=== PATIENT | male | born 1935 | race Caucasian/White ===

== ENCOUNTER 2017-07-29 14:09 | Inpatient (IN) | payer OTHER, MEDICARE ==
[~2017-07-29] VITALS: Ht 177.8 cm; Wt 62.8 kg
--- NOTE | 2017-07-29 14:38 | ED DYSPNEA/ASTHMA COMPLAINT ---
History of Present Illness General Chief Complaint: Dyspnea (COPD, CHF, Other) Stated Complaint: SENT BY URGENT CARE FOR ?COPD EXACERBATION Source: patient Exam Limitations: no limitations Vital Signs & Intake/Output Vital Signs & Intake/Output Vital Signs Date Time Temp Pulse Resp B/P B/P Pulse O2 O2 Flow FiO2 Mean Ox Delivery Rate 07/30 1649 63 110/60 07/30 1543 19.0 63 20 110/60 98 Room Air 07/30 1118 95 Room Air 07/30 1110 Room Air 07/30 0908 76 111/55 07/30 0800 98.4 76 18 124/70 96 Room Air 07/30 0800 96 Room Air 07/30 0400 92 Room Air 07/30 0213 93 Room Air 07/30 0115 97.8 81 18 110/60 93 Room Air 07/30 0051 88 18 123/70 94 Room Air 07/29 2340 98.9 76 20 119/61 94 Room Air 07/29 2226 98.5 88 18 114/59 93 Room Air 07/29 2121 98.6 93 20 129/59 94 Room Air ED Intake and Output 07/30 0000 07/29 1200 Intake Total 0 Output Total 300 Balance -300 Intake, Oral 0 Output, Urine 300 Patient 175 lb Weight Allergies Coded Allergies: crab (DIARRHEA 07/29/17) Triage Note: 81 YEAR OLD MALE TO TRIAGE WITH COMPLAINTS OF INCREASED SOB AND NON PRODUCTIVE LOOSE COUGH FOR ABOUT 1 WEEK. PT HAS COPD AND O2 SAT 96 % AT TRIAGE. AFEBRILE Triage Nurses Notes Reviewed? yes Onset: Gradual Duration: week(s): (1) Timing: recent history Severity: moderate Activities at Onset: none Prior Episodes/Possible Cause: occasional episodes HPI: Patient is an 81-year-old male with history of hypertension, hyperlipidemia and COPD presenting to the emergency department with family Lozoya complaining of increasing shortness of breath, nonproductive cough that been going on for the past one week. Patient reports that he was seen and evaluated at an urgent care facility about one week ago and was put on antibiotics and prednisone. Symptoms still not improving one week later. Shortness of breath is worse with exertion. Denies any chest pain or palpitations. Denies abdominal pain. Patient also reports that he tripped on the floor at home today fell backward and hit his head. Denies loss of consciousness. No headaches. Denies visual changes. He was able to get up with the assistance of another person. Patient denying any neck pain. Denies back pain. Patient reports his main complaint is shortness of breath COPD. He has been using inhalers at home without relief. Reports he is coughing so much that is keeping him up at night. (Obdulia HOOVER,Jyoti) Reconcile Medications Albuterol Sulfate (Ventolin Hfa) 90 MCG HFA.AER.AD 2 PUF INH Q4H PRN WHEEZE/ SOB (Reported) Aspirin (Ecotrin*) 81 MG TABLET.DR 1 TAB PO DAILY HEART/BLOOD (Reported) Atorvastatin Calcium 40 MG TABLET 1 TAB PO DAILY CHOLESTEROL (Reported) Benzonatate (Tessalon Perle) 100 MG CAPSULE 1 CAP PO TID PRN COUGH (Reported) Citalopram Hydrobromide (Citalopram HBr) 40 MG TABLET 1 TAB PO DAILY MENTAL HEALTH (Reported) Cyanocobalamin (Vitamin B-12) 1,000 MCG TABLET 1 TAB PO DAILY SUPPLEMENT ( Reported) Cyanocobalamin (Vitamin B-12) (Vitamin B-12) 100 MCG TABLET 1 TAB PO DAILY SUPPLEMENT (Reported) Diltiazem HCl (Cardizem Cd) 240 MG CAP.ER.24H 1 CAP PO DAILY HEART/BP ( Reported) Finasteride 5 MG TABLET 1 TAB PO DAILY PROSTATE (Reported) Hydrochlorothiazide 25 MG TABLET 1 TAB PO DAILY DIURETIC (Reported) Ipratropium Willard (Atrovent Hfa) 17 MCG/ACTUATION HFA.AER.AD 2 PUFF INH BID COPD (Reported) Lisinopril 20 MG TABLET 1 TAB PO DAILY BP (Reported) Metoprolol Tartrate 25 MG TABLET 75 MG PO BID HEART/BP (Reported) Mometasone/Formoterol (Dulera 200 Mcg/5 Mcg Inhaler) 200 MCG-5 MCG/ACTUATION HFA.AER.AD 2 PUF INH BID COPD (Reported) Prednisone 10 MG TABLET STEROID TAPER (Reported) Tamsulosin HCl 0.4 MG CAP.ER.24H 1 CAP PO DAILY (Reported) Tiotropium Willard (Spiriva) (Unknown Strength) CAP.W.DEV (Unknown Dose) INH DAILY COPD (Reported) Trazodone HCl 50 MG TABLET 1 TAB PO AD MENTAL HEALTH/SLEEP (Reported) Vit C/E/Zn/Coppr/Lutein/Zeaxan (Preservision Areds 2 Softgel) 250-200-40 CAPSULE 1 SGL PO BID SUPPLEMENT (Reported) (Hollie BIRD,Dillan Lozano) Past History Travel History Traveled to [place] past 21 day No Medical History Any Pertinent Medical History? 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 No (Jyoti Watson) Review of Systems Review of Systems Constitutional: Reports: malaise. Comments Review of systems: See HPI, All other systems negative. Constitutional, no chills fever or weight loss HEENT: No visual changes no sore throat Cardiovascular: No chest pain ,palpitation , orthopnea or ankle swelling Skin, no jaundice no rashes Respiratory: No sputum or hemoptysis GI: No nausea no vomiting : No dysuria No hematuria Muscle skeletal: no back pain, no neck pain, Neurologic: No numbness no confusion no headaches Psych: No stress anxiety or depression,. Heme/endocrine: No bruising no bleeding no polyuria or polydipsia Immunology: No splenectomy or history of AIDS (Jyoti Watson) Physical Exam Physical Exam General Appearance: well developed/nourished, alert, awake, comfortable, mild distress (respiratory distress) Respiratory: respiratory distress (MILD) Comments: Well-developed well-nourished person in no acute distress HEENT:extraocular motion intact, no nystagmus. Pupils equally round and reactive to light and accommodation. Nose is atraumatic. No septal hematoma. No pain to palpation over the nasal bridge. Small abrasion noted to the right of the nasal bridge. External auditory canal and Tympanic membranes clear. Pharynx normal. No swelling or edema. No hemotympanum. Small hematoma on the posterior aspect of the scalp, centrally located approximately 2 cm in size, no active bleeding. Neck: Supple, no lymphadenopathy, normal range of motion without pain or tenderness, no C-spine tenderness. Back: Nontender, FULL range of motion. Cardiovascular: Regular rate and rhythms no murmurs rubs or gallops, normal JVP Respiratory: Chest nontender. No respiratory distress.breath sounds DIMINISHED to auscultation bilaterally Abdomen: Soft, nontender nondistended, no appreciable organomegaly. Normal bowel sounds. No ascites Extremity: 2+ pitting edema in the lower extremities bilaterally, no calf tenderness to palpation, normal and equal pulses. Neuro: Alert oriented x3, motor sensory normal, cranial nerves II through XII grossly intact. Cerebellar testing is unremarkable. Patellar reflexes are 1+ bilaterally. Skin: Superficial linear laceration approximately 2 cm in size noted on the superior aspect of the nasal bridge on the right side. 2 Centimeter laceration noted on the central aspect the posterior scalp, subcutaneous, no active bleeding. Psych: Mood and affect is normal, memory and judgment is normal. Core Measures ACS in differential dx? No CVA/TIA Diagnosis No Sepsis Present: No Sepsis Focused Exam Completed? No (Obdulia HOOVER,Jyoti) Progress Differential Diagnosis: asthma, bronchitis, costochondritis, CHF, COPD, pericarditis, pneumonia, INTRACRANIAL HEMORRHAGE, MINOR HEAD INJURY, MEDICATION REACTION Plan of Care: Orders Procedure Date/time Status PRE-ALBUMIN 07/31 06 Active CBC WITHOUT DIFFERENTIAL 07/31 06 Active BASIC ELECTROLYTES PLUS BUN&CR 07/31 06 Active CULTURE,URINE 07/30 1451 Active Wound Care/Dressing 07/30 1425 Active Transfer Disposition 07/30 1425 Active RT: Evaluation 07/30 1110 Active Wound Care/Dressing 07/30 156 Complete Weight 07/30 0157 Active VTE Mechanical Prophylaxis 07/30 156 Active Vital Signs 07/30 156 Active Turn and Reposition 07/30 156 Active Drains/Tubes 07/30 156 Active Teach/Educate 07/30 156 Active Skin Integrity Protocol 07/30 156 Active Skin/Pressure Ulcer Assess (Sk 07/30 015 Active Precautions 07/30 156 Active Pain Treatment and Response 07/30 156 Active Nutritional Intake, Monitor 07/30 156 Active Isolation 07/30 156 Active CIWA 07/30 156 Active Patient Care Conference 07/30 156 Active Activity/Ambulation 07/30 156 Active VRE ACTIVE SURVIELLANCE 07/30 0149 Active ACTIVE SURVEILLANCE NARES 07/30 148 Active THERAPIST ORDERS 07/30 UNK Complete PT Evaluate & Treat 07/30 UNK Active Therapeutic Activities 07/30 UNK Complete PT EVAL LOW COMPLEX 20 MIN 07/30 UNK Complete Gait Training 07/30 UNK Complete Transfer patient to 07/30 UNK Active Lab Add-on Test 07/30 UNK Active PHARMACY COMMUNICATION FORM 07/30 UNK Active MISSING MEDICATION FORM 07/30 UNK Active URINE OSMOLALITY 07/29 1999 Complete URINE LYTES, SPOT 07/29 1999 Complete Herson Coma Scale 07/29 191 Active Current Medications Sig/[place] Start time Last Medication Dose Stop Time Status Admin Prednisone 10 MG DAILY 08/02 1000 AC 08/02 1001 Prednisone 20 MG DAILY 08/01 1000 AC Prednisone 30 MG DAILY 07/31 1000 AC 07/31 1001 Trazodone HCl 50 MG AT BEDTIME PRN 07/30 2200 AC (Desyrel) Atorvastatin Calcium 40 MG 17007/30 1700 AC 07/30 (Lipitor) 1649 Citalopram 40 MG 17007/30 1700 AC 07/30 Hydrobromide 1649 (Celexa) Finasteride 5 MG 17007/30 1700 AC 07/30 (Proscar) 1648 Tamsulosin HCl 0.4 MG 17007/30 1700 AC 07/30 (Flomax) 1649 Albuterol Sulfate 3 ML Q4P PRN 07/30 1130 AC (Proventil) Cyanocobalamin 1,000 MCG DAILY 07/30 1000 AC 07/30 (Vitamin B12) 0908 Diltiazem HCl 240 MG DAILY 07/30 1000 AC 07/30 (Cardizem CD) 0907 Hydrochlorothiazide 25 MG DAILY 07/30 1000 AC 07/30 (Hydrodiuril) 0907 Lisinopril 20 MG DAILY 07/30 1000 AC 07/30 (Prinivil) 0908 Budesonide/ 2 PUF BID 07/29 2200 AC 07/30 Formoterol Fumarate 0909 (Symbicort) Metoprolol Tartrate 75 MG BID 07/29 2200 AC 07/30 (Lopressor) 0908 Tiotropium Willard 1 PUF DAILY 07/29 1910 AC 07/30 (Spiriva) 0908 Acetaminophen 650 MG Q6P PRN 07/29 1900 AC (Tylenol) Acetaminophen 1,000 MG Q6P PRN 07/29 1900 AC (Ofirmev) Azithromycin 250 MG DAILY 07/29 1900 AC 07/30 (Zithromax) 08/03 1001 0907 Guaifenesin 10 ML Q6P PRN 07/29 1900 AC (Robitussin) Laboratory Tests 07/30/17 0445: Anion Gap 10, Estimated GFR > 60, Glucose 129 H, Calcium 8.4, Phosphorus 3.6, Magnesium 1.7, Total Bilirubin 0.7, AST 23, ALT 32, Albumin 2.8 L, CBC w Diff NO MAN DIFF REQ, RBC 4.20 L, MCV 91.7, MCH 30.3, RDW 14.4, MPV 7.3 L, Gran % 92.5 H, Lymphocytes % 5.7 L, Monocytes % 1.7, Eosinophils % 0, Basophils % 0.1 , Absolute Granulocytes 13.0 H, Absolute Lymphocytes 0.8 L, Absolute Monocytes 0.2, Absolute Eosinophils 0, Absolute Basophils 0, PUBS MCHC 33.0 07/29/171999: Urine Color YEL, Urine Clarity CLDY H, Urine pH 6.0, Ur Specific [place] 1.025, Urine Protein 30 H, Urine Ketones NEG, Urine Nitrite POS H, Urine Bilirubin NEG, Urine Urobilinogen 0.2, Ur Leukocyte Esterase LARGE H, Ur Microscopic SEDIMENT EXAMINED, Urine RBC >75 H, Urine WBC > 75 H, Ur Epithelial Cells RARE , Urine Hemoglobin LARGE H, Urine Glucose NEG 07/29/171999: Urine Osmolality 476, Ur Random Creatinine 65.9, Ur Random Sodium 77, Ur Random Potassium 44.2, Fraction Sodium Excret 0.8 Microbiology 07/30 1451 URINE ROUT: Urine Culture - COLB 07/30 0200 UPPER RESP: Surveillance Culture - RECD 07/30 199 GI: Surveillance Culture - RECD 07/29 1999 URINE ROUT: Urine Culture - COMP 07/29 1913 NASOPHARYN: Influenza Virus A & B Rapid Smear - COMP With Dr. BHAKTA, covering neurosurgeon, recommended we admit patient to medicine to the ICU for serial neuro checks, repeat CAT scan. Patient also admitted for COPD exacerbation. Family informed of all labs and imaging results. Patient resting comfortably. Diagnostic Imaging: Viewed by Me: Radiology Read, CT Scan. Discussed w/RAD: Radiology Read, CT Scan. Radiology Impression: PATIENT: AGNIESZKA FERRARO PRESENT AGE: 81 PATIENT ACCOUNT NO: [id number] : 33 LOCATION: [facility] ORDERING PHYSICIAN: Jyoti HOOVER SERVICE DATE: 07/29/178140 EXAM TYPE: CAT - CT CERV SPINE WO IV CONTRAST; CT HEAD WO IV CONTRAST EXAMINATION: CT HEAD WITHOUT CONTRAST CT OF THE CERVICAL SPINE WITHOUT CONTRAST CLINICAL INFORMATION: Status post fall. COMPARISON: None. TECHNIQUE: Noncontrast CT scan of the head and cervical spine, using standard protocol. Multiplanar reconstructed images are obtained. Multiplanar reconstructed images are also obtained. FINDINGS: CT OF THE HEAD: Evaluation is limited especially the region of the skull base due to motion related artifacts. Repeat images were also obtained. Solitary 8 mm focal area of hyperdensity is noted at left frontal parafalcine region (see the sorto images) with Hounsfield value of 50. Differential includes tiny focal hemorrhage versus underlying pathology such as mineralized cavernous angioma. Further differentiation cannot be made based on this imaging appearance alone. Follow-up repeat noncontrast CT scan in 6 hours or a follow-up MRI or clinical management as appropriate is recommended. The remainder of the brain parenchyma shows age-appropriate mild diffuse cortical atrophy and mild chronic microvascular deep white matter ischemic changes. There is no extra-axial fluid collection identified. Small air-fluid level is noted within the right anterior inferior part of the sphenoid sinus and also within the left maxillary sinus, may represent intrasinus hemorrhage or acute sinusitis. Both orbital globes, extraocular muscles, optic nerves appear bilaterally symmetric and are unremarkable. 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 Moderate to severe degenerative spondylosis related changes are noted at C4-C5, to a lesser extent C3-C4, C5-C6 and C6-C7. Significant facet joint arthritic changes are also noted bilaterally. The posterior appendages are intact. Mild mid cervical dextroscoliosis is present. The prespinal soft tissues are unremarkable. Both lung apices are clear. IMPRESSION: 1. The CT of the head shows 8 mm hyperdensity within the left frontal parafalcine region with Hounsfield value of 50, may represent tiny focal area of hemorrhage versus underlying pathology such as mineralized cavernous angioma. Further differentiation cannot be made based on this imaging appearance alone. Follow-up repeat noncontrast CT scan in 6 hours or a follow-up MRI or clinical management as appropriate is recommended. 2. No CT evidence of any acute fracture no subluxation or dislocation or prespinal soft tissue hematoma present at the cervical spine. This critical result was discussed with SNEHA Quintero at 4:04 PM on 07/29/2017 and it was ascertained that the content and urgency of the report was understood at the time of direct communication. DICTATED BY: Kristin Harp MD DATE/TIME DICTATED:07/29/171525 ASSEMBLY RIVETER:DAMON DATE/TIME TRANSCRIBED:07/29/171525 CONFIDENTIAL, DO NOT COPY WITHOUT APPROPRIATE AUTHORIZATION. <Electronically signed in Other Vendor System> SIGNED BY: Kristin Harp MD 07/29/17 1610 CXR Impression: PATIENT: AGNIESZKA FERRARO PRESENT AGE: 81 PATIENT ACCOUNT NO: [id number] : 33 LOCATION: [facility] ORDERING PHYSICIAN: Israel Diaz DO SERVICE DATE: 07/29/17 EXAM TYPE: RAD - XRY-CHEST XRAY, TWO VIEWS EXAMINATION: XR CHEST CLINICAL INFORMATION: Nonproductive cough. COMPARISON: None TECHNIQUE: 2 views of the chest were obtained. FINDINGS: Both lungs are symmetrically hyperexpanded and are clear. The cardiomediastinal silhouette is remarkable for undulated descending thoracic aorta. There is no pleural effusion or pneumothorax present. The visualized upper abdomen is unremarkable. Multilevel degenerative spondylosis related changes are noted in the spine. IMPRESSION: Hyperinflated lung field, consistent with likely underlying COPD. No radiographic evidence of superimposed pneumonia. DICTATED BY : Kristin Harp MD DATE/TIME DICTATED:07/29/171458 ASSEMBLY RIVETER: DAMON DATE/TIME TRANSCRIBED:07/29/171458 CONFIDENTIAL, DO NOT COPY WITHOUT APPROPRIATE AUTHORIZATION. <Electronically signed in Other Vendor System> SIGNED BY: Kristin Harp MD 07/29/17 1557 Initial ED EKG: SINUS RHYTHM AT 96 BPM, LEFT ANTERIOR FASCICULAR BLOCK, BORDERLINE PROLONGED qt (Obdulia HOOVER,Jyoti) Departure Departure Time of Disposition: 1703 Disposition: STILL A PATIENT Condition: Stable Clinical Impression Primary Impression: Intracranial hemorrhage Secondary Impressions: COPD exacerbation, Laceration Referrals: Sami Pham MD Departure Forms: Customer Survey General Discharge Information Admission Note Spoke With: Raimundo Jamil MD Documentation of Exam: Documentation of any treatments & extenuating circumstances including Concerns Regarding Discharge (functional status, medication knowledge or non-compliance, living conditions, etc.) that warrant an admission rather than observation: Patient requiring intensive care unit admission for serial neuro checks, continuous monitoring, neurosurgery consultation, repeat imaging in 6 hours to ensure area is resolving. Serial breathing treatments to help COPD exacerbation. (Jyoti Watson) Admission Note Documentation of Exam: Documentation of any treatments & extenuating circumstances including Concerns Regarding Discharge (functional status, medication knowledge or non-compliance, living conditions, etc.) that warrant an admission rather than observation: PA/DIGITAL RESEARCH ANALYST Co-Sign Statement Statement: ED Attending supervision documentation- [X] I saw and evaluated the patient. I have also reviewed all the pertinent lab results and diagnostic results. I agree with the findings and the plan of care as documented in the PA's/DIGITAL RESEARCH ANALYST's documentation. [X] I have reviewed the ED Record and agree with the PA's/DIGITAL RESEARCH ANALYST's documentation. [] Additions or exceptions (if any) to the PAs/DIGITAL RESEARCH ANALYST's note and plan are summarized below: [Patient sent for walk in center for evaluation for COPD exacerbation. Patient was wheezing upon presentation however after nebulizers he is feeling much better. Patient did have a mechanical fall this morning and had a laceration to the back of his head. Patient denies loss of consciousness. Patient has no neurological findings. There is no headache. On the CAT scan there showing an 8 mm hyperdense lesion in his left frontal parafalcine area. This is discussed with no surgery and recommends admission to the ICU for serial neuro checks and repeat CAT scan in the morning. If his neurological status deteriorates he may require surgical or interventional radiology evaluation and treatment. Patient will also need respiratory treatments for his COPD.] (Hollie BIRD,Dillan Lozano) Procedures Laceration/Wound Repair Laceration/Wound Repair: Wound Location: head Wound's Depth, Shape: linear, subcutaneous Wound Length (cm): 2 Wound Explored: clean, irrigated extensively Irrigated w/ Saline (ccs): 100 Betadine Prep? Yes Suture Size/Type: mulugeta Number of Sutures: 2 Layer Closure? No Tetanus Status: up to date Progress: TOLERATD PROCEDURE WELL (Jyoti Watson) Critical Care Note Critical Care Note Critical Care Time: 30-74 min (Obdulia HOOVER,Jyoti)
[2017-07-29 14:43] LABS: ABSOLUTE BASOPHIL COUNT 0 /CUMM (0.0-0.2); ABSOLUTE EOSINOPHIL COUNT 0.1 /CUMM (0.0-0.7); ABSOLUTE GRANULOCYTE CT 18.6 /CUMM (1.4-6.5); BASOPHIL % 0 % (0.0-2.0); EOSINOPHIL % 0.4 % (0-5); GRANULOCYTE % 90.1 % (42.2-75.2); HEMATOCRIT 45.1 % (42-52); MEAN CORPUSCULAR HGB 30.3 PG (27.0-31.0); MEAN CORPUSCULAR HGB CONC 32.9 G/DL (33.0-37.0); MEAN PLATELET VOLUME 6.6 FL (7.4-10.4); PLATELET COUNT 423 /CUMM (130-400); RBC DISTRIBUTION WIDTH 14.5 % (11.5-14.5); WHITE BLOOD CELL COUNT 20.7 /CUMM (4.8-10.8)
[2017-07-29] MEDS ORDERED: ASPIRIN EC81 M1 PO (15:29)
[2017-07-29] MEDS ORDERED: FINASTERIDE5 M1 PO (15:30)
[2017-07-29] MEDS ORDERED: ATORVASTATIN CA40 M1 PO (15:30)
[2017-07-29] MEDS ORDERED: CITALOPRAM HBR40 MG PO (15:30)
[2017-07-29] MEDS ORDERED: VITAMIN B-121000 MC3 PO (15:30)
[2017-07-29] MEDS ORDERED: DULERA 200 MCG/13 GM INH (15:31)
[2017-07-29] MEDS ORDERED: HYDROCHLOROTHIA25 M1 PO (15:31)
[2017-07-29] MEDS ORDERED: TAMSULOSIN HCL0.4 M1 PO (15:31)
[2017-07-29] MEDS ORDERED: LISINOPRIL20 M1 PO (15:31)
[2017-07-29] MEDS ORDERED: CARDIZEM CD240 M1 PO (15:32)
[2017-07-29] MEDS ORDERED: ATROVENT HFA12.9 GM INH (15:33)
[2017-07-29] MEDS ORDERED: AMOX-CLAV 875-1 EACH PO (15:33)
[2017-07-29] MEDS ORDERED: PREDNISONE10 M2 PO (15:34)
[2017-07-29] MEDS ORDERED: VENTOLIN HFA18 GM INH (15:34)
[2017-07-29] MEDS ORDERED: METOPROLOL TART25 M1 PO (15:35)
[2017-07-29] MEDS ORDERED: PRESERVISION A1 EAC1 PO (15:38)
--- NOTE | 2017-07-29 15:57 | RADIOLOGY REPORT ---
EXAMINATION: XR CHEST CLINICAL INFORMATION: Nonproductive cough. COMPARISON: None TECHNIQUE: 2 views of the chest were obtained. FINDINGS: Both lungs are symmetrically hyperexpanded and are clear. The cardiomediastinal silhouette is remarkable for undulated descending thoracic aorta. There is no pleural effusion or pneumothorax present. The visualized upper abdomen is unremarkable. Multilevel degenerative spondylosis related changes are noted in the spine. IMPRESSION: Hyperinflated lung field, consistent with likely underlying COPD. No radiographic evidence of superimposed pneumonia.
--- NOTE | 2017-07-29 16:10 | CT SCAN REPORT ---
EXAMINATION: CT HEAD WITHOUT CONTRAST CT OF THE CERVICAL SPINE WITHOUT CONTRAST CLINICAL INFORMATION: Status post fall. COMPARISON: None. TECHNIQUE: Noncontrast CT scan of the head and cervical spine, using standard protocol. Multiplanar reconstructed images are obtained. Multiplanar reconstructed images are also obtained. FINDINGS: CT OF THE HEAD: Evaluation is limited especially the region of the skull base due to motion related artifacts. Repeat images were also obtained. Solitary 8 mm focal area of hyperdensity is noted at left frontal parafalcine region (see the sorto images) with Hounsfield value of 50. Differential includes tiny focal hemorrhage versus underlying pathology such as mineralized cavernous angioma. Further differentiation cannot be made based on this imaging appearance alone. Follow-up repeat noncontrast CT scan in 6 hours or a follow-up MRI or clinical management as appropriate is recommended. The remainder of the brain parenchyma shows age-appropriate mild diffuse cortical atrophy and mild chronic microvascular deep white matter ischemic changes. There is no extra-axial fluid collection identified. Small air-fluid level is noted within the right anterior inferior part of the sphenoid sinus and also within the left maxillary sinus, may represent intrasinus hemorrhage or acute sinusitis. Both orbital globes, extraocular muscles, optic nerves appear bilaterally symmetric and are unremarkable. 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 Moderate to severe degenerative spondylosis related changes are noted at C4-C5, to a lesser extent C3-C4, C5-C6 and C6-C7. Significant facet joint arthritic changes are also noted bilaterally. The posterior appendages are intact. Mild mid cervical dextroscoliosis is present. The prespinal soft tissues are unremarkable. Both lung apices are clear. IMPRESSION: 1. The CT of the head shows 8 mm hyperdensity within the left frontal parafalcine region with Hounsfield value of 50, may represent tiny focal area of hemorrhage versus underlying pathology such as mineralized cavernous angioma. Further differentiation cannot be made based on this imaging appearance alone. Follow-up repeat noncontrast CT scan in 6 hours or a follow-up MRI or clinical management as appropriate is recommended. 2. No CT evidence of any acute fracture no subluxation or dislocation or prespinal soft tissue hematoma present at the cervical spine. This critical result was discussed with SNEHA Quintero at 4:04 PM on 07/29/2017 and it was ascertained that the content and urgency of the report was understood at the time of direct communication.
[2017-07-29] MEDS ORDERED: TESSALON PERLE100 M1 PO (17:42)
[2017-07-29] MEDS ORDERED: SPIRIVA18 MCG INH (17:44)
[2017-07-29] MEDS ORDERED: VITAMIN B-12100 MC1 PO (17:45)
[2017-07-29] MEDS ORDERED: TRAZODONE HCL50 M1 PO (17:45)
--- NOTE | 2017-07-29 18:50 | History & Physical ---
Josefina Winn 07/29/17 1806: General Information and HPI MD Statement: I have seen and personally examined AGNIESZKA FERRARO and documented this H&P. 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 Patient has been having persistent cough for the last 1 week ,denies any trouble breathing, palpitations, chest discomfort, cannot able to sleep due to cough. Denies any phlegm. Reports sick contact with her daughter, who has the similar symptoms. Patient was seen at urgent care about a week ago and was prescribed antibiotics and prednisone without much relief in his symptoms. Patient mentioned that due to his left foot drop he has been having frequent falls , without any obvious injuries or fractures .Today patient also tripped and fell backward and hit his head. Denied any dizziness or lightheadedness loss of consciousness before or after the fall. He did bruise and cut on the back of his head, that prompted him to come to the ER for further assessment. In the ED, patient was asymptomatic, still coughing. Denied any vision changes denied, any weaknesses. CT scan of the brain revealed CT of the head shows 8 mm hyperdensity within the left frontal parafalcine region. Of the note, patient was recently admitted at [facility] due to sepsis of urological origin and had a prolonged hospitalization for almost 25 days. He has a history of chronic hyponatremia, and has been drinking a lot of salt in the soup due to his low sodium levels. Patient is an ex-smoker, used to smoke 1 pack a day quit smoking about 30 years ago does not drink alcohol does not use any illicit drugs. Allergies/Medications Allergies: Coded Allergies: crab (DIARRHEA 07/29/17) Home Med list Albuterol Sulfate (Ventolin Hfa) 90 MCG HFA.AER.AD 2 PUF INH Q4H PRN WHEEZE/ SOB (Reported) Amoxicillin/Clavulanate Potass (Amox-Clav 875-125 MG Tablet) 875 MG-125 MG TABLET 1 TAB PO BID ANTIBIOTIC (Reported) Aspirin (Ecotrin*) 81 MG TABLET.DR 1 TAB PO DAILY HEART/BLOOD (Reported) Atorvastatin Calcium 40 MG TABLET 1 TAB PO DAILY CHOLESTEROL (Reported) Benzonatate (Tessalon Perle) 100 MG CAPSULE 1 CAP PO TID PRN COUGH (Reported) Citalopram Hydrobromide (Citalopram HBr) 40 MG TABLET 1 TAB PO DAILY MENTAL HEALTH (Reported) Cyanocobalamin (Vitamin B-12) 1,000 MCG TABLET 1 TAB PO DAILY SUPPLEMENT ( Reported) Cyanocobalamin (Vitamin B-12) (Vitamin B-12) 100 MCG TABLET 1 TAB PO DAILY SUPPLEMENT (Reported) Diltiazem HCl (Cardizem Cd) 240 MG CAP.ER.24H 1 CAP PO DAILY HEART/BP ( Reported) Finasteride 5 MG TABLET 1 TAB PO DAILY PROSTATE (Reported) Hydrochlorothiazide 25 MG TABLET 1 TAB PO DAILY DIURETIC (Reported) Ipratropium [place] (Atrovent Hfa) 17 MCG/ACTUATION HFA.AER.AD 2 PUFF INH BID COPD (Reported) Lisinopril 20 MG TABLET 1 TAB PO DAILY BP (Reported) Metoprolol Tartrate 25 MG TABLET 75 MG PO BID HEART/BP (Reported) Mometasone/Formoterol (Dulera 200 Mcg/5 Mcg Inhaler) 200 MCG-5 MCG/ACTUATION HFA.AER.AD 2 PUF INH BID COPD (Reported) Prednisone 10 MG TABLET STEROID TAPER (Reported) Tamsulosin HCl 0.4 MG CAP.ER.24H 1 CAP PO DAILY (Reported) Tiotropium [place] (Spiriva) (Unknown Strength) CAP.W.DEV (Unknown Dose) INH DAILY COPD (Reported) Trazodone HCl 50 MG TABLET 1 TAB PO AD MENTAL HEALTH/SLEEP (Reported) Vit C/E/Zn/Coppr/Lutein/Zeaxan (Preservision Areds 2 Softgel) 250-200-40 CAPSULE 1 SGL PO BID SUPPLEMENT (Reported) Past History Travel History Traveled to [place] past 21 day No Medical History Neurological: NONE EENT: NONE Cardiovascular: hypertension, hyperlipidemia Respiratory: COPD Hepatic: NONE Renal: TUMOR ON KIDNEY Musculoskeletal: NONE Psychiatric: NONE Endocrine: NONE Blood Disorders: NONE Cancer(s): NONE EQUINE VET/Reproductive: NONE Surgical History Surgical History: non-contributory Past Family/Social History Family History Relations & Conditions if any Relation not specified for: *No pertinent family history Psychosocial History ETOH Use: denies use Illicit Drug Use: denies illicit drug use Review of Systems Review of Systems Constitutional: Denies: diaphoresis, fever, malaise, weakness. EENTM: Denies: blurred vision, double vision, visual changes, eye pain. Cardiovascular: Denies: orthopena. Respiratory: Reports: cough. Denies: hemoptysis, orthopnea, short of breath. GI: Denies: constipation. Genitourinary: Denies: discharge, dysuria, frequency, hematuria. Musculoskeletal: Denies: back pain, gout, joint pain, muscle pain. Skin: Denies: change in skin color, change in hair/nails, dryness. Neurological/Psychological: Denies: ataxia, cognitive dysfunction, confusion. Hematologic/Endocrine: Denies: bruising, bleeding. Exam & Diagnostic Data Last 24 Hrs of Vital Signs/I&O Vital Signs Date Time Temp Pulse Resp B/P B/P Pulse O2 O2 Flow FiO2 Mean Ox Delivery Rate 07/29 1718 98.5 94 18 112/57 95 Room Air 07/29 1422 97.2 99 20 101/58 96 Room Air Intake & Output 07/29 1600 07/29 0800 07/29 0000 Intake Total 0 Output Total Balance 0 Intake, Oral 0 Patient 175 lb Weight Physical Exam General Appearance Alert, Oriented X3 Skin No Rashes, No Breakdown Skin Temp/Moisture Exam: Warm/Dry HEENT Atraumatic Neck Supple, No JVD, No thryomegaly Cardiovascular Regular Rate, Normal S1, Normal S2 Lungs Clear to Auscultation, Normal Air Movement Neurological Normal Gait, Normal Speech, Strength at 5/5 X4 Ext Last 24 Hrs of Labs/Chung: Laboratory Tests 07/29/17 1840: PT Pending, INR Pending, APTT Pending 07/29/17 1434: Anion Gap 8, Estimated GFR > 60, BUN/Creatinine Ratio 32.2 H, Glucose 86, Calcium 9.2, Magnesium 1.7, Total Bilirubin 0.9, AST 31, ALT 31, Alkaline Phosphatase 70, Troponin I < 0.01, Total Protein 6.2 L, Albumin 3.3 L, Globulin 2.9, Albumin/Globulin Ratio 1.1, CBC w Diff MAN DIFF ORDERED, RBC 4.90, MCV 92.0, MCH 30.3, RDW 14.5, MPV 6.6 L, Gran % 90.1 H, Lymphocytes % 4.8 L, Monocytes % 4.7, Eosinophils % 0.4, Basophils % 0, Absolute Granulocytes 18.6 H , Absolute Lymphocytes 1.0 L, Absolute Monocytes 1.0 H, Absolute Eosinophils 0.1, Absolute Basophils 0, Platelet Estimate ADEQUATE, Normocytic RBCs VERIFIED, Normochromic RBCs VERIFIED, PUBS MCHC 32.9 L Microbiology 07/29 1855 URINE ROUT: Urine Culture - ORD 07/29 1855 NASOPHARYN: Influenza Virus A & B Rapid Smear - ORD Assessment/Plan Assessment: Patient is a 81-year-old gentleman with a past medical history significant for hypertension, hyperlipidemia, COPD not on home oxygen, history of right-sided kidney tumor?, 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 Pertinent vitals on admission temperature 98.2, pulse 99, respiratory 20, blood pressure 101/58 on room air. Pertinent labs on admission leukocytosis 20 with granulocytosis no bandemia, hyponatremia 132, pending urinalysis. EKG showed normal sinus rhythm with left anterior fascicular block. Chest x-ray:Hyperinflated lung field, consistent with likely underlying COPD. No radiographic evidence of superimposed pneumonia. CT head:The CT of the head shows 8 mm hyperdensity within the left frontal parafalcine region with Hounsfield value of 50, may represent tiny focal area of hemorrhage versus underlying pathology such as mineralized cavernous angioma. Problem list Acute intra-cranial hemorrhage(status post mechanical fall) Persistent cough(? Bacterial bronchitis) with mild COPD exacerbation Chronic hyponatremia History of hypertension and hyperlipidemia(? Heart disease) History of recent hospitalization due to sepsis of urological origin. Plan Acute intra-cranial hemorrhage(status post mechanical fall) * Will closely monitor the patient in the ICU. * Neuro checks every 1 hour. * Neurosurgery has been informed by ED staff, no acute surgical interventions for now. We'll repeat CAT scan within 6-8 hours, if there is any worsening in the intracranial bleed or worsening neurological signs. * Aspirin on hold Persistent cough(? Bacterial bronchitis) with mild COPD exacerbation * Start the patient on by mouth azithromycin with quick taper prednisone. * TRC /nebs. * Continue home inhalers. Chronic hyponatremia * Continue to monitor sodium levels. * Consider repeating BP later during the night. History of hypertension and hyperlipidemia(? Heart disease) * Continue home medications. Patient declined any history of heart history but he is on beta keaton high dose statins and Cardizem,please obtain records from recent hospitalization and PCP. History of recent hospitalization due to sepsis of urological origin. * Obtain urinalysis and urine culture * Obtain recent hospitalization from the hospital at [facility]. Mild to moderate pain controlled with Tylenol DVT prophylaxis with Alps only in the setting of intracranial bleed Patient is full code As Ranked By This Provider Problem List: 1. Intracranial hemorrhage 2. COPD exacerbation 3. Laceration Core Measures/Misc (03/25) Acute Coronary Syndrome ACS Diagnosis: No Congestive Heart Failure Congestive Heart Failure Diagnosis No Cerebrovascular Accident CVA/TIA Diagnosis: Yes NIH Stroke Scale: Total 0 Swallow Evaluation Pass No Antithrombotic d/t Hemorrhagic CVA VTE (View Protocol) VTE Risk Factors Age>40 No Mechanical VTE Prophylaxis d/t Other No VTE Pharm Prophylaxis d/t Other Sepsis (View protocol) Sepsis Present: No Resident Review Statement Resident Statement: examined this patient, discussed with news internship Soraya Marks 07/29/179: Attending MD Review Statement Attending Statement Attending MD Statement: examined this patient, discuss w/resident/PA/[employer] CONTROL CLERK, agreed w/resident/PA/[employer] CONTROL CLERK, reviewed EMR data (avail), reviewed images, amended to note Attending Assessment/Plan: CC: Persistent cough, fall PMH: HTN, HLD, COPD, not on home oxygen, but right kidney tumor, left foot drop, hyponatremia Patient states that he came to ER for persistent cough since one week. This morning patient fell down so for the combined reason he came to ER. He has not been sleeping properly since last 1 week, this morning he was trying to go to get some medication when he tripped and fell backwards and hit his head to the floor, no loss of consciousness, no bladder or bowel incontinence, no seizure- like activity. Patient recalls the episode. He denies any chest pain, palpitations, dizziness before the fall. He had small bump on his back of head and small laceration at forehead because of his broken glasses. Patient states that he has been falling multiple times, last fall was one month back. He denies any neurological weakness, headache after the fall. Regarding his cough, he has been having nonproductive cough since last 1 week. His daughter is sick with some respiratory bug. Patient denies any fever, chills, sputum production, chest pain or chest tightness, shortness of breath, wheezing. He just has bad cough which keeps him up whole night. "I have COPD and I think it is in exacerbation". Patient tried to walk in clinic where he was prescribed antibiotics, prednisone which he currently taking without much relief. I think he followed up with urgent care from where he was sent to ER because of the fall. Vitals: Afebrile, pulse in 90s, RR 20, blood pressure 112/57, saturating well on room air. On exam: A O 3, hard of hearing, cooperative, no acute distress, neck supple, JVD normal, no lymphadenopathy, mucosa moist, poor efforts, bilateral upper extremity strength 5/5, lower extremity 4+/5, reflexes normal, normal ROM in both ankles, +1 leg edema, no obvious skin rashes or inflammation CVS: S1-S2, RRR. RS: Clear to auscultate bilaterally. Abdomen: Soft, NT, ND, bowel sounds present. Labs: WBC 20.7, hemoglobin 14.8, hematocrit 45.1, platelet 423, neutrophil 90%, sodium 132, potassium 4.0, chloride 92, bicarbonate 32, BUN 29, creatinine 0.9, anion gap 8, glucose 86, calcium 9.2, LFT unremarkable, troponin less than 0.01, albumin 3.3, INR 1.26, UA positive for nitrites, leukocyte esterase, large hemoglobin, rapid influenza negative. CT head and cervical spine: 1. The CT of the head shows 8 mm hyperdensity within the left frontal parafalcine region with Hounsfield value of 50, may represent tiny focal area of hemorrhage versus underlying pathology such as mineralized cavernous angioma. Further differentiation cannot be made based on this imaging appearance alone. Follow-up repeat noncontrast CT scan in 6 hours or a follow-up MRI or clinical management as appropriate is recommended. 2. No CT evidence of any acute fracture no subluxation or dislocation or prespinal soft tissue hematoma present at the cervical spine. CXR:Hyperinflated lung field, consistent with likely underlying COPD. No radiographic evidence of superimposed pneumonia. Assessment and plan 81-year-old male presented in ER for persistent cough even after outpatient treatment with antibiotics and prednisone. He also had one accident fall this morning without any prodromal symptoms. No seizure-like activity or loss of consciousness. Patient had a head strike, has small contusion on the occipital area, without any laceration or blood. Patient has very small laceration on forehead (his glasses broke during fall). Complete neurological examination unremarkable. Patient was found to have above-mentioned 8 mm hypodensity in the left frontal area, hemorrhage versus mineralized cavernous angioma versus artifact, neurosurgery was called from ER suggested to observe patient in ICU with serial neuro checks, repeat CT scan. Meanwhile we will also treat his mild COPD exacerbation with prednisone and antibiotics. Even though patient has significant leukocytosis, and there is no pulmonary infiltrate. Patient is on prednisone which may be cause of leukocytosis. Patient does not have any urinary symptoms, any skin rashes or any other source of infection. + Accidental fall, suspected intracranial hemorrhage versus artifact + COPD exacerbation + History of HTN, HLD, COPD, not on home oxygen, but right kidney tumor, left foot drop, hyponatremia - Admit to ICU - Every hourly neuro checks - Repeat CT head without IV contrast in 6 hours - Follow neurosurgery recommendation - Consider MRI brain - Continue prednisone 40 mg by mouth daily - Continue IV azithromycin - Scheduled and when necessary nebulization with albuterol and ipratropium - Mucinex 600 mg by mouth twice a day - Obtain records from [facility] regarding recent hospitalization for septic shock related to UTI. - Continue all his home medications - No aspirin or DVT prophylaxis for now.
[2017-07-29 19:00] LABS: PT 13.2 SEC (9.4-12.5); PTT 28 SEC (25-37)
--- NOTE | 2017-07-29 21:45 | CT SCAN REPORT ---
EXAMINATION: CT HEAD WITHOUT CONTRAST CLINICAL INFORMATION: Status post fall. Follow-up CT examination. COMPARISON: CT head dated earlier on 07/29/2017. TECHNIQUE: Contiguous axial imaging was performed from the skull base to vertex without intravenous administration of contrast. DLP: 623.40 mGy-cm FINDINGS: Stable 9 x 6 x 7 (AP, transverse, craniocaudal) patchy region of hyperdensity within the precentral gyrus of the left frontal lobe. This is nonspecific but may suggest a small cavernous hemangioma or developmental venous anomaly. The size and morphology appears unchanged from prior examination making this unlikely to represent intracranial hemorrhage. There is no surrounding edema or apparent mass effect. Generalized minimal atrophy of the brain with proportion dilation of the ventricles, sulci, and basilar cisterns. There are intracranial vascular calcifications with small hypodensity in bilateral periventricular and subcortical white matter which are nonspecific but most frequently associated with sequela of chronic microvascular ischemia. There is no evidence of acute territorial infarction. No abnormal mass effect or midline shift is seen. Guerrero to white matter differentiation is well preserved. No extra-axial fluid collections are identified. The osseous structures and soft tissues are normal. Unchanged layering fluid in left maxillary sinus and right sphenoid sinus. The partially visualized paranasal sinuses and mastoid air cells are otherwise clear and well aerated. IMPRESSION: Stable hyperdensity within the posterior aspect of the left frontal lobe. This is nonspecific and may represent a cavernous hemangioma or developmental venous anomaly. Given stability, this is felt to be unlikely to represent an acute focus of intracranial hemorrhage. Consider further evaluation with MRI. Minimal fluid in the left maxillary and right sphenoid sinuses, unchanged.
--- NOTE | 2017-07-29 21:51 | Admission Certification ---
Admission Certification Certification Statement - As attending physician, I certify that at the time of - admission, based on clinical presentation, severity of - symptoms, need for further diagnostic testing and - therapeutic interventions, and risk of adverse outcomes - without in-hospital treatment, in my clinical assessment, - this patient requires an acute hospital stay for a minimum - of two nights or longer. I have also considered psychsocial - factors such as support system, advanced age, financial - issues, cognitive issues, and failed out-patient treatments, - past re-admission history, safety of patient, and lack of - compliance as applicable. Specific rationale supporting this admission is: Suspected intracranial hemorrhage, accidental fall, COPD exacerbation
--- NOTE | 2017-07-30 00:21 | Cons- Neurosurgical ---
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 The patient states that he was at home and sustained a mechanical fall and hit his head on the carpet in the kitchen. He denies loss of consciousness dizziness prior to fall, blurred vision headache after the fall. Upon transfer to [facility] emergency room CAT scan demonstrates an 8 mm hyperdensity that was questionable for acute hemorrhage. Dr. Aviles was contacted by the emergency room who recommended the patient be admitted to the ICU for every hour neuro checks and follow-up CAT scan in 6 hours to assess for an expanding hematoma. In the emergency room the patient is awake alert and conversive and in good spirits and is without complaints at this time. Allergies/Medications Allergies: Coded Allergies: crab (DIARRHEA 07/29/17) Home Med List: Albuterol Sulfate (Ventolin Hfa) 90 MCG HFA.AER.AD 2 PUF INH Q4H PRN WHEEZE/ SOB (Reported) Amoxicillin/Clavulanate Potass (Amox-Clav 875-125 MG Tablet) 875 MG-125 MG TABLET 1 TAB PO BID ANTIBIOTIC (Reported) Aspirin (Ecotrin*) 81 MG TABLET.DR 1 TAB PO DAILY HEART/BLOOD (Reported) Atorvastatin Calcium 40 MG TABLET 1 TAB PO DAILY CHOLESTEROL (Reported) Benzonatate (Tessalon Perle) 100 MG CAPSULE 1 CAP PO TID PRN COUGH (Reported) Citalopram Hydrobromide (Citalopram HBr) 40 MG TABLET 1 TAB PO DAILY MENTAL HEALTH (Reported) Cyanocobalamin (Vitamin B-12) 1,000 MCG TABLET 1 TAB PO DAILY SUPPLEMENT ( Reported) Cyanocobalamin (Vitamin B-12) (Vitamin B-12) 100 MCG TABLET 1 TAB PO DAILY SUPPLEMENT (Reported) Diltiazem HCl (Cardizem Cd) 240 MG CAP.ER.24H 1 CAP PO DAILY HEART/BP ( Reported) Finasteride 5 MG TABLET 1 TAB PO DAILY PROSTATE (Reported) Hydrochlorothiazide 25 MG TABLET 1 TAB PO DAILY DIURETIC (Reported) Ipratropium Lillian (Atrovent Hfa) 17 MCG/ACTUATION HFA.AER.AD 2 PUFF INH BID COPD (Reported) Lisinopril 20 MG TABLET 1 TAB PO DAILY BP (Reported) Metoprolol Tartrate 25 MG TABLET 75 MG PO BID HEART/BP (Reported) Mometasone/Formoterol (Dulera 200 Mcg/5 Mcg Inhaler) 200 MCG-5 MCG/ACTUATION HFA.AER.AD 2 PUF INH BID COPD (Reported) Prednisone 10 MG TABLET STEROID TAPER (Reported) Tamsulosin HCl 0.4 MG CAP.ER.24H 1 CAP PO DAILY (Reported) Tiotropium Lillian (Spiriva) (Unknown Strength) CAP.W.DEV (Unknown Dose) INH DAILY COPD (Reported) Trazodone HCl 50 MG TABLET 1 TAB PO AD MENTAL HEALTH/SLEEP (Reported) Vit C/E/Zn/Coppr/Lutein/Zeaxan (Preservision Areds 2 Softgel) 250-200-40 CAPSULE 1 SGL PO BID SUPPLEMENT (Reported) Past History Medical History Neurological: NONE EENT: NONE Cardiovascular: hypertension, hyperlipidemia Respiratory: COPD Hepatic: NONE Renal: TUMOR ON KIDNEY Musculoskeletal: NONE Psychiatric: NONE Endocrine: NONE Blood Disorders: NONE Cancer(s): NONE 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 Surgical History Pertinent Surgical History: non-contributory Family History Relations & Conditions If Any: Relation not specified for: *No pertinent family history Psychosocial History ETOH Use: denies use Illicit Drug Use: denies illicit drug use Exam & Diagnostic Data Vital Signs and I&O Vital Signs Date Time Temp Pulse Resp B/P B/P Pulse O2 O2 Flow FiO2 Mean Ox Delivery Rate 07/290 98.9 76 20 119/61 94 Room Air 07/29 2225 98.5 88 18 114/59 93 Room Air 07/29 2120 98.6 93 20 129/59 94 Room Air 07/29 1718 98.5 94 18 112/57 95 Room Air 07/29 1422 97.2 99 20 101/58 96 Room Air Intake & Output 07/30 0800 07/30 0000 07/29 1600 07/29 0800 07/29 0000 07/28 1600 Intake Total 0 Output Total 300 Balance -300 0 Intake, Oral 0 Output, Urine 300 Patient 175 lb Weight Physical Exam General Appearance: no apparent distress, alert, awake, comfortable Head: normal appearance, evidence of injury Eyes: Bilateral: PERRL. Neck: no midline tenderness Respiratory: normal breath sounds, no respiratory distress Cardiovascular: regular rate/rhythm Gastrointestinal: soft, non-tender Extremities: no edema, left foot drop Last 24 Hours of Labs: Laboratory Tests 07/29 1840 Coagulation PT (9.4 - 12.5 SEC) 13.2 H INR (0.90 - 1.17) 1.26 H APTT (25 - 37 SEC) 28 Urines Urine Color (YEL,AMB,STR) YEL Urine Clarity (CLEAR) CLDY H Urine pH (5.0 - 8.0) 6.0 Ur Specific [place] (1.001 - 1.035) 1.025 Urine Protein (NEG,<30 MG/DL) 30 H Urine Ketones (NEG) NEG Urine Nitrite (NEG) POS H Urine Bilirubin (NEG) NEG Urine Urobilinogen (0.1 - 1.0 EU/dl) 0.2 Ur Leukocyte Esterase (NEG) LARGE H Ur Microscopic SEDIMENT EXAMINED Urine RBC (0 - 5 /HPF) >75 H Urine WBC (0 - 2 /HPF) > 75 H Ur Epithelial Cells (NONE,FEW) RARE Urine Hemoglobin (NEG) LARGE H Urine Glucose (N MG/DL) NEG 07/29 1434 Chemistry Sodium (137 - 145 mmol/L) 132 L Potassium (3.5 - 5.1 mmol/L) 4.0 Chloride (98 - 107 mmol/L) 92 L Carbon Dioxide (22 - 30 mmol/L) 32 H Anion Gap (5 - 16) 8 BUN (9 - 20 mg/dL) 29 H Creatinine (0.7 - 1.2 mg/dL) 0.9 Estimated GFR (>60 ml/min) > 60 BUN/Creatinine Ratio (7 - 25 %) 32.2 H Glucose (65 - 99 mg/dL) 86 Calcium (8.4 - 10.2 mg/dL) 9.2 Magnesium (1.6 - 2.3 mg/dL) 1.7 Total Bilirubin (0.2 - 1.3 mg/dL) 0.9 AST (17 - 59 U/L) 31 ALT (21 - 72 U/L) 31 Alkaline Phosphatase (< 127 U/L) 70 Troponin I (<0.11 ng/ml) < 0.01 Total Protein (6.3 - 8.2 g/dL) 6.2 L Albumin (3.5 - 5.0 g/dL) 3.3 L Globulin (1.9 - 4.2 gm/dL) 2.9 Albumin/Globulin Ratio (1.1 - 2.2 %) 1.1 Hematology CBC w Diff MAN DIFF ORDERED WBC (4.8 - 10.8 /CUMM) 20.7 H RBC (4.70 - 6.10 /CUMM) 4.90 Hgb (14.0 - 18.0 G/DL) 14.8 Hct (42 - 52 %) 45.1 MCV (80.0 - 94.0 FL) 92.0 MCH (27.0 - 31.0 PG) 30.3 RDW (11.5 - 14.5 %) 14.5 Plt Count (130 - 400 /CUMM) 423 H MPV (7.4 - 10.4 FL) 6.6 L Gran % (42.2 - 75.2 %) 90.1 H Lymphocytes % (20.5 - 51.1 %) 4.8 L Monocytes % (1.7 - 9.3 %) 4.7 Eosinophils % (0 - 5 %) 0.4 Basophils % (0.0 - 2.0 %) 0 Absolute Granulocytes (1.4 - 6.5 /CUMM) 18.6 H Absolute Lymphocytes (1.2 - 3.4 /CUMM) 1.0 L Absolute Monocytes (0.10 - 0.60 /CUMM) 1.0 H Absolute Eosinophils (0.0 - 0.7 /CUMM) 0.1 Absolute Basophils (0.0 - 0.2 /CUMM) 0 Platelet Estimate (ADEQUATE) ADEQUATE Normocytic RBCs VERIFIED Normochromic RBCs VERIFIED PUBS MCHC (33.0 - 37.0 G/DL) 32.9 L Imaging Results: SERVICE DATE: 07/29/17 EXAM TYPE: CAT - CT CERV SPINE WO IV CONTRAST; CT HEAD WO IV CONTRAST EXAMINATION: CT HEAD WITHOUT CONTRAST CT OF THE CERVICAL SPINE WITHOUT CONTRAST CLINICAL INFORMATION: Status post fall. COMPARISON: None. TECHNIQUE: Noncontrast CT scan of the head and cervical spine, using standard protocol. Multiplanar reconstructed images are obtained. Multiplanar reconstructed images are also obtained. FINDINGS: CT OF THE HEAD: Evaluation is limited especially the region of the skull base due to motion related artifacts. Repeat images were also obtained. Solitary 8 mm focal area of hyperdensity is noted at left frontal parafalcine region (see the sorto images) with Hounsfield value of 50. Differential includes tiny focal hemorrhage versus underlying pathology such as mineralized cavernous angioma. Further differentiation cannot be made based on this imaging appearance alone. Follow-up repeat noncontrast CT scan in 6 hours or a follow-up MRI or clinical management as appropriate is recommended. The remainder of the brain parenchyma shows age-appropriate mild diffuse cortical atrophy and mild chronic microvascular deep white matter ischemic changes. There is no extra-axial fluid collection identified. Small air-fluid level is noted within the right anterior inferior part of the sphenoid sinus and also within the left maxillary sinus, may represent intrasinus hemorrhage or acute sinusitis. Both orbital globes, extraocular muscles, optic nerves appear bilaterally symmetric and are unremarkable. 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 Moderate to severe degenerative spondylosis related changes are noted at C4-C5, to a lesser extent C3-C4, C5-C6 and C6-C7. Significant facet joint arthritic changes are also noted bilaterally. The posterior appendages are intact. Mild mid cervical dextroscoliosis is present. The prespinal soft tissues are unremarkable. Both lung apices are clear. IMPRESSION: 1. The CT of the head shows 8 mm hyperdensity within the left frontal parafalcine region with Hounsfield value of 50, may represent tiny focal area of hemorrhage versus underlying pathology such as mineralized cavernous angioma. Further differentiation cannot be made based on this imaging appearance alone. Follow-up repeat noncontrast CT scan in 6 hours or a follow-up MRI or clinical management as appropriate is recommended. 2. No CT evidence of any acute fracture no subluxation or dislocation or prespinal soft tissue hematoma present at the cervical spine. This critical result was discussed with SNEHA Quintero at 4:04 PM on 07/29/2017 and it was ascertained that the content and urgency of the report was understood at the time of direct communication. DICTATED BY: Kristin Harp MD DATE/TIME DICTATED:07/29/17 1526 BI ARCHITECT:DAMON DATE/TIME TRANSCRIBED:07/29/171525 Other Results: SERVICE DATE: 07/29/17 EXAM TYPE: CAT - CT HEAD WO IV CONTRAST EXAMINATION: CT HEAD WITHOUT CONTRAST CLINICAL INFORMATION: Status post fall. Follow-up CT examination. COMPARISON: CT head dated earlier on 07/29/2017. TECHNIQUE: Contiguous axial imaging was performed from the skull base to vertex without intravenous administration of contrast. DLP: 623.40 mGy-cm FINDINGS: Stable 9 x 6 x 7 (AP, transverse, craniocaudal) patchy region of hyperdensity within the precentral gyrus of the left frontal lobe. This is nonspecific but may suggest a small cavernous hemangioma or developmental venous anomaly. The size and morphology appears unchanged from prior examination making this unlikely to represent intracranial hemorrhage. There is no surrounding edema or apparent mass effect. Generalized minimal atrophy of the brain with proportion dilation of the ventricles, sulci, and basilar cisterns. There are intracranial vascular calcifications with small hypodensity in bilateral periventricular and subcortical white matter which are nonspecific but most frequently associated with sequela of chronic microvascular ischemia. There is no evidence of acute territorial infarction. No abnormal mass effect or midline shift is seen. Guerrero to white matter differentiation is well preserved. No extra-axial fluid collections are identified. The osseous structures and soft tissues are normal. Unchanged layering fluid in left maxillary sinus and right sphenoid sinus. The partially visualized paranasal sinuses and mastoid air cells are otherwise clear and well aerated. IMPRESSION: Stable hyperdensity within the posterior aspect of the left frontal lobe. This is nonspecific and may represent a cavernous hemangioma or developmental venous anomaly. Given stability, this is felt to be unlikely to represent an acute focus of intracranial hemorrhage. Consider further evaluation with MRI. Minimal fluid in the left maxillary and right sphenoid sinuses, unchanged. DICTATED BY: Finn Parada MD DATE/TIME DICTATED:07/29/172130 BI ARCHITECT:DAMON DATE/TIME TRANSCRIBED:07/29/172130 Assessment/Plan Assessment/Plan Mr. Carrillo is an 81-year-old male who sustained a mechanical fall at home. Initial CAT scan evaluation demonstrated an 8 mm hyperdensity equivocal for acute hemorrhage. Follow-up CAT scan recommended by Dr. Aviles demonstrated no change in density size. And since arrival in the emergency room the patient has remained awake alert and responsive without complaints of headache blurred vision or dizziness. Plan Dr. silva recommends every hour neuro checks overnight in the ICU Dr. silva will evaluate patient in a.m. Consult Acknowledgment - Thank you for your consult request.
[2017-07-30 01:15] VITALS: BP 110/60
[2017-07-30 06:19] LABS: ABSOLUTE BASOPHIL COUNT 0 /CUMM (0.0-0.2); ABSOLUTE EOSINOPHIL COUNT 0 /CUMM (0.0-0.7); ABSOLUTE LYMPH COUNT 0.8 /CUMM (1.2-3.4); BASOPHIL % 0.1 % (0.0-2.0); EOSINOPHIL % 0 % (0-5)
[2017-07-30 06:24] LABS: ABSOLUTE MONOCYTE COUNT 0.2 /CUMM (0.10-0.60); MEAN CORPUSCULAR HGB 30.3 PG (27.0-31.0); MEAN CORPUSCULAR VOLUME 91.7 FL (80.0-94.0); MEAN PLATELET VOLUME 7.3 FL (7.4-10.4); RBC DISTRIBUTION WIDTH 14.4 % (11.5-14.5); WHITE BLOOD CELL COUNT 14.1 /CUMM (4.8-10.8)
[2017-07-30 06:36] LABS: GRANULOCYTE % 92.5 % (42.2-75.2); HEMATOCRIT 38.6 % (42-52); PLATELET COUNT 358 /CUMM (130-400)
--- NOTE | 2017-07-30 07:44 | Cons- CRCU ---
Timmy Marlow 07/30/17 0744: General Information and HPI History of Present Illness: Mr Carrillo is an 81-year-old gentleman with a past medical history of hypertension, hyperlipidemia, COPD (not on home oxygen), left foot drop, chronic hyponatremia was brought in after he had a mechanical fall, and persistent productive cough 1 week. He has been having productive cough, postnasal drip for the last 1 week, and was treated with antibiotics and steroids at an outpatient clinic, without any resolution of symptoms. He fell down while he was reaching out for his medications, and landed on this back and hitting the back of the head that resulted in a small laceration. He did not have any prodromal symtoms, and did not have any neurological symptoms. When he was brought in to the hospital, vitals remained stable with oxygen saturation above 92% or RA. He did not have any focal neurological deficits, nor did he have any abnormal lung sounds on auscultation. Allergies/Medications Allergies: Coded Allergies: crab (DIARRHEA 07/29/17) Home Med List: Albuterol Sulfate (Ventolin Hfa) 90 MCG HFA.AER.AD 2 PUF INH Q4H PRN WHEEZE/ SOB (Reported) Aspirin (Ecotrin*) 81 MG TABLET.DR 1 TAB PO DAILY HEART/BLOOD (Reported) Atorvastatin Calcium 40 MG TABLET 1 TAB PO DAILY CHOLESTEROL (Reported) Benzonatate (Tessalon Perle) 100 MG CAPSULE 1 CAP PO TID PRN COUGH (Reported) Citalopram Hydrobromide (Citalopram HBr) 40 MG TABLET 1 TAB PO DAILY MENTAL HEALTH (Reported) Cyanocobalamin (Vitamin B-12) 1,000 MCG TABLET 1 TAB PO DAILY SUPPLEMENT ( Reported) Cyanocobalamin (Vitamin B-12) (Vitamin B-12) 100 MCG TABLET 1 TAB PO DAILY SUPPLEMENT (Reported) Diltiazem HCl (Cardizem Cd) 240 MG CAP.ER.24H 1 CAP PO DAILY HEART/BP ( Reported) Finasteride 5 MG TABLET 1 TAB PO DAILY PROSTATE (Reported) Hydrochlorothiazide 25 MG TABLET 1 TAB PO DAILY DIURETIC (Reported) Ipratropium [place] (Atrovent Hfa) 17 MCG/ACTUATION HFA.AER.AD 2 PUFF INH BID COPD (Reported) Lisinopril 20 MG TABLET 1 TAB PO DAILY BP (Reported) Metoprolol Tartrate 25 MG TABLET 75 MG PO BID HEART/BP (Reported) Mometasone/Formoterol (Dulera 200 Mcg/5 Mcg Inhaler) 200 MCG-5 MCG/ACTUATION HFA.AER.AD 2 PUF INH BID COPD (Reported) Prednisone 10 MG TABLET STEROID TAPER (Reported) Tamsulosin HCl 0.4 MG CAP.ER.24H 1 CAP PO DAILY (Reported) Tiotropium [place] (Spiriva) (Unknown Strength) CAP.W.DEV (Unknown Dose) INH DAILY COPD (Reported) Trazodone HCl 50 MG TABLET 1 TAB PO AD MENTAL HEALTH/SLEEP (Reported) Vit C/E/Zn/Coppr/Lutein/Zeaxan (Preservision Areds 2 Softgel) 250-200-40 CAPSULE 1 SGL PO BID SUPPLEMENT (Reported) Review of Systems Review of Systems Constitutional: Reports: see HPI. 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 Home Smoking Status: Former Smoker ETOH Use: denies use Illicit Drug Use: denies illicit drug use Functional Ability ADLs Independent: dressing, eating, toileting, bathing. Ambulation: independent IADLs Unknown: shopping, housework, finances, food prep, telephone, transportation, medication admin. Exam & Diagnostic Data Last 24 Hrs of Vital Signs/I&O Vital Signs Date Time Temp Pulse Resp B/P B/P Pulse O2 O2 Flow FiO2 Mean Ox Delivery Rate 07/30 1118 95 Room Air 07/30 1110 Room Air 07/30 0908 76 111/55 07/30 0800 98.4 76 18 124/70 96 Room Air 07/30 0800 96 Room Air 07/30 0400 92 Room Air 07/30 0213 93 Room Air 07/30 0115 97.8 81 18 110/60 93 Room Air 07/30 0051 88 18 123/70 94 Room Air 07/29 2340 98.9 76 20 119/61 94 Room Air 07/29 2226 98.5 88 18 114/59 93 Room Air 07/29 2121 98.6 93 20 129/59 94 Room Air 07/29 1718 98.5 94 18 112/57 95 Room Air 07/29 1422 97.2 99 20 101/58 96 Room Air Intake & Output 07/30 1600 07/30 0800 07/30 0000 Intake Total Output Total 275 300 Balance -275 -300 Output, Urine 275 300 Patient 162 lb Weight Physical Exam General Appearance: well developed/nourished Other Physical Findings: General Exam: AAOx3, No acute distress, Skin: No rashes, no breakdown, laceration on the back of the head- mulugeta in place. small lacertation on the glabellar area, non bleeding. HEENT: PERRLA, EOMI Neck: Supple, No JVD No cervical lymphadenopathy CVS: Reg Rate, Normal S1,S2, No MGR Resp: Normal air entry, no ronchi/rales, Abdomen: Soft, No tenderness, Normal Bowel Sounds Neuro: Normal Speech, Strength 5/5 b/l x 4 extremities, Sensation intact, CN III -XII NL, Reflexes 2+, no tremor, finger nose test normal, gait not tested. Extremities: No cyanosis, pedal edema Full Body Anterior 1) laceration on the back of the head Full Body Posterior 1) laceration w/ mulugeta Diagnostic Data EKG Results NSR LAFB HR 96 CXR Results Hyperinflated lung field, consistent with likely underlying COPD. No radiographic evidence of superimposed pneumonia. Other Results CT head: 07/29/17-[address] of the head shows 8 mm hyperdensity within the left frontal parafalcine region with Hounsfield value of 50, may represent tiny focal area of hemorrhage versus underlying pathology such as mineralized cavernous angioma. Further differentiation cannot be made based on this imaging appearance alone. Follow-up repeat noncontrast CT scan in 6 hours or a follow-up MRI or clinical management as appropriate is recommended. CT cervical spine: 2. No CT evidence of any acute fracture no subluxation or dislocation or prespinal soft tissue hematoma present at the cervical spine. CT head: 07/29/17-1856 Stable hyperdensity within the posterior aspect of the left frontal lobe. This is nonspecific and may represent a cavernous hemangioma or developmental venous anomaly. Given stability, this is felt to be unlikely to represent an acute focus of intracranial hemorrhage. Consider further evaluation with MRI. 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 At the time of admission, vitals were stable and did not have any neurological symptoms. Pertinent lab data: WBC 20.7(07/29)-->14.1(07/30) w/ > 90% granulocytes Na 132 ( Urine lytes- osm, lytes pending..) K 4.3 BUN 29, Sr Cr 0.9 INR 1.26, Alb 3.3 UA showed ULE +, nitrites +, pyuria ( recently Tx for UTI at [facility]). Etiology for his fall is likely mechanical, but other causes such as dehydration from decreased po intake, persistent cough or AECOP are possible etiologies. He has been tx'ed for AECOPD w/ abx and steroids causing an increase in wbc, but having only granulocytosis indicates infection, for which he is tx'ed w/ azithromycin for now. Other cardiogenic causes are possible, but unlikely. In regards to his other important issue for which he is in the ICU, is the a small 9 x 6 x 7mm hyperdensity within the precentral gyrus of the left frontal lobe indicating an acute focal hemorrhage or a mineralized cavernous angioma. He was watched closely with frequent neurochecks, which remained normal so far. Also, he had a repeat CT scan which did not show any increase in the size of bleeding. She has an ICH score of 1. She was evaluated by Dr. Moore from neurosurgery to help us manage the bleeding complications if any. Plan: 1. Respiratory- He might have had a viral illness causing an acute exacerbation of COPD. He is currently on po steroids. - Continue po steroids taper. - Please continue azithromycin. - Continue symbicort, ipratropium, and HEYDI - TRC nebs, and supplemental oxygen if needed. 2. Infectious: - Leucocytosis which is improving. - Likely URTI. Need to evaluate, if the pt has any UTI, and if needed w/ tx w/ abx. - Follow repeat UC, since the first sample was deemed contaminated. - Records from [facility] in place, but if they are not complete; would request them again for history on prolonged tx of UTI. 3. Metabolic: - Hyponatremia- likely chronic. - Check urine lytes, urine osm, serum osm. - Monitor closely, with repeat BEP in the am. - Evaluate the type of hyponatremia, and ascertain if he needs salt tabs. 4. Cardiovascular- - HTN: continue home dose of lisinopril, hctz, diltiazem. - Monitor for high BP. 4. Neurological- - Continue neuro checks every 1 hours - If no worsening neuro deficits, change to every 4 hours. - Hold aspirin, and anticoagulation for now. - Restart in the a.m., after reevaluation. - Neurosurgery has been consulted. - Low ICH score, would warrant monitoring. 5. Mental health- - Continue citalopram for now. Housekeepin. DVT PPx- ALPs for now. 2. Diet- heart healthy diet. 3. Full code Consults- - Neurosurgery - Physical Tx Problem List: 1. Laceration 2. COPD exacerbation Consult Acknowledgment - Thank you for your consult request. Alan BIRD,[facility] 07/30/17 0843: General Information and HPI Consulting Request Date of Consult: 07/30/17 Requested By: Dr. Marks Reason for Consult: CRCU management for intercranial hemorrahge. Source of Information: patient, old records Exam Limitations: no limitations Allergies/Medications Current Medications: Current Medications Sig/Maldonado Start time Last Medication Dose Route Stop Time Status Admin Acetaminophen 650 MG Q6P PRN 07/29 1900 AC PO Acetaminophen 1,000 MG Q6P PRN 07/29 1900 AC IV Albuterol Sulfate 3 ML ONCE ONE 07/29 1500 DC 07/29 INH 07/29 1501 1520 Atorvastatin Calcium 40 MG DAILY 07/30 1000 AC PO Azithromycin 0 .STK-MED ONE 07/29 1914 DC PO Azithromycin 250 MG DAILY 07/29 1900 AC 07/29 PO 08/03 1001 1917 Budesonide/ 2 PUF BID 07/290 AC 07/29 Formoterol Fumarate INH 6 Citalopram 40 MG DAILY 07/30 1000 AC Hydrobromide PO Cyanocobalamin 1,000 MCG DAILY 07/30 1000 AC PO Diltiazem HCl 240 MG DAILY 07/30 1000 AC PO Finasteride 5 MG DAILY 07/30 1000 AC PO Guaifenesin 10 ML Q6P PRN 07/29 1900 AC PO Guaifenesin/Codeine 10 ML ONCE ONE 07/29 1615 DC 07/29 Phosphate PO 07/29 1616 1708 Hydrochlorothiazide 25 MG DAILY 07/30 1000 AC PO Ipratropium [place] 2.5 ML ONCE ONE 07/29 1500 DC 07/29 INH 07/29 1501 1520 Lisinopril 20 MG DAILY 07/30 1000 AC PO Methylprednisolone 0 .STK-MED ONE 07/29 1641 DC .ROUTE Methylprednisolone 125 MG ONCE ONE 07/29 1600 DC 07/29 IV 07/29 1601 1708 Metoprolol Tartrate 0 .STK-MED ONE 07/29 223 DC PO Metoprolol Tartrate 0 .STK-MED ONE 07/29 223 DC PO Metoprolol Tartrate 75 MG BID 07/29 2200 AC 07/29 PO 2236 Prednisone 10 MG DAILY 08/02 1000 AC PO 08/02 1001 Prednisone 20 MG DAILY 08/01 1000 AC PO Prednisone 30 MG DAILY 07/31 1000 AC PO 07/31 1001 Prednisone 40 MG DAILY 07/30 1000 AC PO 07/30 1001 Sodium Chloride 1,000 ML ONCE ONE 07/29 1545 DC 07/29 IV 07/29 2224 1708 Tamsulosin HCl 0.4 MG DAILY 07/30 1000 AC PO Tiotropium [place] 1 PUF DAILY 07/29 1910 AC 07/29 INH 2035 Trazodone HCl 50 MG AT BEDTIME PRN 07/30 2200 AC PO Exam & Diagnostic Data Last 24 Hrs of Vital Signs/I&O Vital Signs Date Time Temp Pulse Resp B/P B/P Pulse O2 O2 Flow FiO2 Mean Ox Delivery Rate 07/30 0400 92 Room Air 07/30 0213 93 Room Air 07/30 0115 97.8 81 18 110/60 93 Room Air 07/30 0051 88 18 123/70 94 Room Air 07/29 2340 98.9 76 20 119/61 94 Room Air 07/29 2225 98.5 88 18 114/59 93 Room Air 07/29 2120 98.6 93 20 129/59 94 Room Air 07/29 1718 98.5 94 18 112/57 95 Room Air 07/29 1422 97.2 99 20 101/58 96 Room Air Intake & Output 07/30 1600 07/30 0800 07/30 0000 Intake Total Output Total 275 300 Balance -275 -300 Output, Urine 275 300 Patient 162 lb Weight Last 48 Hrs of Labs/Chung: Laboratory Tests 07/30/17 0445: Anion Gap 10, Estimated GFR > 60, Glucose 129 H, Calcium 8.4, Phosphorus 3.6, Magnesium 1.7, Total Bilirubin 0.7, AST 23, ALT 32, Albumin 2.8 L, CBC w Diff NO MAN DIFF REQ, RBC 4.20 L, MCV 91.7, MCH 30.3, RDW 14.4, MPV 7.3 L, Gran % 92.5 H, Lymphocytes % 5.7 L, Monocytes % 1.7, Eosinophils % 0, Basophils % 0.1 , Absolute Granulocytes 13.0 H, Absolute Lymphocytes 0.8 L, Absolute Monocytes 0.2, Absolute Eosinophils 0, Absolute Basophils 0, PUBS MCHC 33.0 07/29/17 2000: Urine Color YEL, Urine Clarity CLDY H, Urine pH 6.0, Ur Specific [place] 1.025, Urine Protein 30 H, Urine Ketones NEG, Urine Nitrite POS H, Urine Bilirubin NEG, Urine Urobilinogen 0.2, Ur Leukocyte Esterase LARGE H, Ur Microscopic SEDIMENT EXAMINED, Urine RBC >75 H, Urine WBC > 75 H, Ur Epithelial Cells RARE , Urine Hemoglobin LARGE H, Urine Glucose NEG 07/29/17 1840: PT 13.2 H, INR 1.26 H, APTT 28 07/29/17 1434: Anion Gap 8, Estimated GFR > 60, BUN/Creatinine Ratio 32.2 H, Glucose 86, Calcium 9.2, Magnesium 1.7, Total Bilirubin 0.9, AST 31, ALT 31, Alkaline Phosphatase 70, Troponin I < 0.01, Total Protein 6.2 L, Albumin 3.3 L, Globulin 2.9, Albumin/Globulin Ratio 1.1, CBC w Diff MAN DIFF ORDERED, RBC 4.90, MCV 92.0, MCH 30.3, RDW 14.5, MPV 6.6 L, Gran % 90.1 H, Lymphocytes % 4.8 L, Monocytes % 4.7, Eosinophils % 0.4, Basophils % 0, Absolute Granulocytes 18.6 H , Absolute Lymphocytes 1.0 L, Absolute Monocytes 1.0 H, Absolute Eosinophils 0.1, Absolute Basophils 0, Platelet Estimate ADEQUATE, Normocytic RBCs VERIFIED, Normochromic RBCs VERIFIED, PUBS MCHC 32.9 L Microbiology 07/29 1913 NASOPHARYN: Influenza Virus A & B Rapid Smear - COMP Assessment/Plan Other Findings/Comments: I have personally seen and examined the patient and agree with the resident's assessment and plan as detailed above. 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 The patient was also recently admitted to [facility] due to sepsis of urologic origin noting the stroke salted and prolonged hospitalization for almost 25 days. He presented to the ED for persistent cough despite outpatient treatment with antibiotics and prednisone. He reported his symptoms had lasted for a minimum of one week. He had no shortness of breath, palpitations or chest pain. There is no report of sputum production. He reports being afebrile. Chest x-ray on admission showed hyperinflation consistent with underlying COPD without any evidence of pneumonia. His white blood cell count on admission was 20.7, which is now improved to 14.1. The patient was placed on azithromycin, Spiriva, Symbicort, nebs and total respiratory care. He is currently on Robitussin. He reports feeling improved overall. Of note, he also had an accidental fall on the day of admission but had no loss of consciousness. Initial head CT done showed an 8 mm hyperdensity within the left frontal parafalcine region, thought to represent tiny focal area of hemorrhage versus underlying pathology. There is no evidence of fracture. Repeat head CT demonstrated stable findings. The patient was sent to the ICU for every hour neuro checks. Neurosurgery has been consulted. Impression: 1. Acute exacerbation of COPD with possible bronchitis. 2. Abnormal head CT, following a fall which may be related to hemorrhage versus underlying lesion. 3. History of minimal fluid in the left maxillary and right sphenoid sinuses, unchanged. 4. Mild hyponatremia, stable. 5. History of hypertension and hyperlipidemia. 6. Mild leukocytosis, improving on azithromycin. No evidence of pneumonia on chest x-ray or evidence of urinary tract infection. Plan: * Neurosurgical consultation to be placed once again this morning for evaluation. * Continue nebs/TRC. * Continue prednisone taper. * Continue Symbicort and Spiriva. * Continue Mucinex. * Complete 5 days of azithromycin. * Continue home medications as tolerated. * DVT prophylaxis with Alps. Avoid subcutaneous heparin in the event the patient has an ICH. * Will downgrade from the ICU when cleared by neurosurgery. Consult Acknowledgment - Thank you for your consult request.
[2017-07-30 08:00] VITALS: BP 124/70
--- NOTE | 2017-07-30 10:36 | PN- Neurosurgical ---
Subjective Subjective: minimal headache Review of Systems: no nausea Review of Systems Constitutional: Denies: no symptoms. EENTM: Denies: see HPI. Cardiovascular: Denies: see HPI. Respiratory: Denies: see HPI. Gastrointestinal: Denies: see HPI. Genitourinary: Denies: see HPI. Musculoskeletal: Denies: see HPI. Skin: Denies: see HPI. Neurological/Psychological: Reports: see HPI. Hematologic/Endocrine: Denies: see HPI. Immunologic/Allergic: Denies: see HPI. All Other Systems: Reviewed and Negative Comments: doing well findings on CT are non traumatic ok to d/c no f/u needed Objective Vital Signs and I&Os Vital Signs Date Time Temp Pulse Resp B/P B/P Pulse O2 O2 Flow FiO2 Mean Ox Delivery Rate 07/30 0908 76 111/55 07/30 0800 98.4 76 18 124/70 96 Room Air 07/30 0800 96 Room Air 07/30 0400 92 Room Air 07/30 0213 93 Room Air 07/30 0115 97.8 81 18 110/60 93 Room Air 07/30 0051 88 18 123/70 94 Room Air 07/29 2340 98.9 76 20 119/61 94 Room Air 07/29 2226 98.5 88 18 114/59 93 Room Air 07/29 2121 98.6 93 20 129/59 94 Room Air 07/29 1718 98.5 94 18 112/57 95 Room Air 07/29 1422 97.2 99 20 101/58 96 Room Air Intake & Output 07/30 1600 07/30 0800 07/30 0000 07/29 1600 07/29 0800 07/29 0000 Intake Total 0 Output Total 275 300 Balance -275 -300 0 Intake, Oral 0 Output, Urine 275 300 Patient 162 lb 175 lb Weight Assessment/Plan Assessment/Plan venous animaly
[2017-07-30 15:43] VITALS: BP 110/60
[2017-07-30 23:38] VITALS: BP 120/80
[2017-07-31 06:00] VITALS: BP 106/58
[2017-07-31 07:00] VITALS: BP 110/60
[2017-07-31 09:02] LABS: ABSOLUTE BASOPHIL COUNT 0 /CUMM (0.0-0.2); ABSOLUTE EOSINOPHIL COUNT 0 /CUMM (0.0-0.7); ABSOLUTE GRANULOCYTE CT 15.4 /CUMM (1.4-6.5); ABSOLUTE LYMPH COUNT 1.9 /CUMM (1.2-3.4); ABSOLUTE MONOCYTE COUNT 1.1 /CUMM (0.10-0.60); BASOPHIL % 0.1 % (0.0-2.0); EOSINOPHIL % 0.2 % (0-5); GRANULOCYTE % 83.4 % (42.2-75.2); HEMATOCRIT 38.7 % (42-52); MEAN CORPUSCULAR HGB 30.5 PG (27.0-31.0); MEAN CORPUSCULAR HGB CONC 32.9 G/DL (33.0-37.0); MEAN CORPUSCULAR VOLUME 92.6 FL (80.0-94.0); MEAN PLATELET VOLUME 7.3 FL (7.4-10.4); PLATELET COUNT 399 /CUMM (130-400); RBC DISTRIBUTION WIDTH 14.5 % (11.5-14.5); RED BLOOD CELL CT 4.18 /CUMM (4.70-6.10)
[2017-07-31 09:15] VITALS: BP 88/48
--- NOTE | 2017-07-31 10:14 | PN- Housestaff ---
Subjective Follow-up For: head trauma s/p fall copd Subjective: No acute events overnight. Pt states he is doing well. SOB improving, Review of Systems Constitutional: Reports: no symptoms. Cardiovascular: Reports: no symptoms. Respiratory: Reports: short of breath. Gastrointestinal: Reports: no symptoms. Genitourinary: Reports: no symptoms. Musculoskeletal: Reports: no symptoms. Objective Last 24 Hrs of Vital Signs/I&O Vital Signs Date Time Temp Pulse Resp B/P B/P Pulse O2 O2 Flow FiO2 Mean Ox Delivery Rate 07/31 1626 116/64 07/31 1408 98.1 59 18 104/60 95 Room Air 07/31 1305 Room Air 07/31 1015 52 88/48 07/31 0915 52 88/48 07/31 0700 97.8 52 18 110/60 94 Room Air 07/31 0600 97.7 53 18 106/58 93 Room Air 07/31 0000 Room Air 07/30 2338 98.1 85 20 120/80 94 Room Air Intake & Output 07/31 1600 07/31 0800 07/31 0000 Intake Total 800 600 120 Output Total 600 500 200 Balance 200 100 -80 Intake, IV 20 Intake, Oral 800 600 100 Number 1 Bowel Movements Output, Urine 600 500 200 Patient 163 lb Weight Weight Bed scale Measurement Method Physical Exam General Appearance: Alert, Oriented X3, Cooperative Cardiovascular: Regular Rate, Normal S1, Normal S2 Lungs: decreased lung sounds b/l Abdomen: Normal Bowel Sounds, Soft, No Tenderness Extremities: 2+ radial pulses Current Medications: Current Medications Sig/Maldonado Start time Last Medication Dose Route Stop Time Status Admin Acetaminophen 650 MG Q6P PRN 07/29 1900 AC PO Acetaminophen 1,000 MG Q6P PRN 07/29 1900 AC IV Albuterol Sulfate 3 ML Q4P PRN 07/30 1130 AC INH Atorvastatin Calcium 40 MG 1700 07/30 1700 AC 07/31 PO 1625 Azithromycin 250 MG DAILY 07/29 1900 AC 07/31 PO 08/03 1001 1009 Budesonide/ 2 PUF BID 07/29 2200 AC 07/31 Formoterol Fumarate INH 1242 Citalopram 40 MG 1700 07/30 1700 AC 07/31 Hydrobromide PO 1625 Cyanocobalamin 1,000 MCG DAILY 07/30 1000 AC 07/31 PO 1013 Diltiazem HCl 240 MG DAILY 07/30 1000 AC 07/30 PO 0907 Finasteride 5 MG 1700 07/30 1700 AC 07/31 PO 1625 Fluticasone 2 PUF BID PRN 07/31 1445 CAN Propionate INH Fluticasone 2 PUF BID 07/31 1432 CAN Propionate INH Guaifenesin 10 ML .STK-MED ONE 07/31 1011 DC PO 07/31 1012 Guaifenesin 10 ML Q6P PRN 07/29 1900 AC PO Hydrochlorothiazide 25 MG DAILY 07/30 1000 AC 07/30 PO 0907 Lisinopril 20 MG DAILY 07/30 1000 AC 07/30 PO 0908 Loratadine 10 MG DAILY 07/31 1445 AC 07/31 PO 1626 Loratadine 10 MG DAILY 07/31 1440 CAN PO Metoprolol Tartrate 50 MG BID 07/31 2199 AC PO Metoprolol Tartrate 75 MG BID 07/29 220 NE 07/30 PO 205 Non-Formulary 0 SEE ADMIN CRITERIA 07/31 1445 CAN Medication ANY Polyethylene Glycol 17 GM DAILY NEEDED PRN 07/31 1500 AC 07/31 PO 1827 Prednisone 10 MG DAILY 08/02 1000 AC PO 08/02 1001 Prednisone 20 MG DAILY 08/01 1000 AC PO 08/02 0959 Prednisone 30 MG DAILY 07/31 1000 DC 07/31 PO 07/31 1001 1009 Senna 187 MG AT BEDTIME NEED.. 07/31 1500 AC 07/31 PO 1827 Sodium Chloride 1,000 ML Q20H 07/31 1500 AC 07/31 IV 1632 Sodium Chloride 500 ML .Q2H30M 07/31 1000 DC 07/31 IV 1022 Tamsulosin HCl 0.4 MG 07/30 1700 AC 07/31 PO 1626 Tiotropium [place] 1 PUF DAILY 07/29 1910 AC 07/31 INH 1020 Trazodone HCl 50 MG AT BEDTIME PRN 07/30 220 AC PO Last 24 Hrs of Lab/Chung Results Last 24 Hrs of Labs/Mics: Laboratory Tests 07/31/17 0744: Anion Gap 10, Estimated GFR > 60, BUN/Creatinine Ratio 50.0 H, Prealbumin 16.8 L, CBC w Diff NO MAN DIFF REQ, RBC 4.18 L, MCV 92.6, MCH 30.5, RDW 14.5, MPV 7.3 L, Gran % 83.4 H, Lymphocytes % 10.5 L, Monocytes % 5.8, Eosinophils % 0.2, Basophils % 0.1, Absolute Granulocytes 15.4 H, Absolute Lymphocytes 1.9, Absolute Monocytes 1.1 H, Absolute Eosinophils 0, Absolute Basophils 0, PUBS MCHC 32.9 L Assessment/Plan Assessment: 81-year-old gentleman with a PMHx of HTN, HLD, COPD not on home oxygen, history of right-sided kidney tumor , 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 #fall Etiology for his fall is likely mechanical, but other causes such as dehydration from decreased po intake, persistent cough or AECOP are possible etiologies. Initial head ct concerning for 8 mm hyperdensity within the left frontal parafalcine region with Hounsfield value of 50, may represent tiny focal area of hemorrhage versus underlying pathology such as mineralized cavernous angioma. Repeat head ct: Stable hyperdensity within the posterior aspect of the left frontal lobe. This is nonspecific and may represent a cavernous hemangioma or developmental venous anomaly. Given stability, this is felt to be unlikely to represent an acute focus of intracranial hemorrhage Patient was seen by neurosurgery who stated patient is ok to be dc'ed and no f/u needed -PT recommending STR for his R foot drop #copd WBC 20.7(07/29)-->14.1(07/30) CXR: Hyperinflated lung field, consistent with likely underlying COPD - Continue po steroids taper. - Please continue azithromycin (day 3). - Continue symbicort, ipratropium, and HEYDI - TRC nebs, and supplemental oxygen if needed. - start loratidine #positive UA and urine cx: Patient has positive LE and nitrites Ucx growing gram negative rods recently Tx for UTI at [facility] May be a cause of his fall -request records from [place] regarding prolonged UTI treatment and sensitivites of cultures -begin antibiotics based on previous cultures #hyponatremia Na 132 -> 134 Urine lytes- osm, lytes pending are all normal - most likely due to poor po intake - cont to monitor and encourage po intake #hx of htn -continue home dose of lisinopril, hctz, diltiazem. #Mental health -Continue citalopram, trazodone #constipation -cont senna/miralax -ensure patient has BM before discharge #bph -cont flomax, finasteride #DVT PPx- ALPs for now. #Diet- heart healthy diet. #Full code Problem List: 1. COPD exacerbation 2. Hyponatremia 3. Fall Pain Ratin Pain Location: none Pain Goal: Pain 4 or less Pain Plan: pain pathway Tomorrow's Labs & Rationales: cbc bep
[2017-07-31 11:12] LABS: WHITE BLOOD CELL COUNT 18.4 /CUMM (4.8-10.8)
--- NOTE | 2017-07-31 11:29 | PN- Att Addend ---
Attending Addendum Attending Brief Note Patient seen and examined, Coughing. Having dry cough. Patient transferred out of ICU and he was admitted with mechanical fall, venous anomaly versus small intracranial hemorrhage found on the head CT and followed by neurosurgery with no intervention recommended. Vital Signs Date Time Temp Pulse Resp B/P B/P Pulse O2 O2 Flow FiO2 Mean Ox Delivery Rate 07/31 1015 52 88/48 07/31 0915 52 88/48 07/31 0700 97.8 52 18 110/60 94 Room Air 07/31 0600 97.7 53 18 106/58 93 Room Air 07/31 0000 Room Air 07/30 2338 98.1 85 20 120/80 94 Room Air 07/30 1649 63 110/60 07/30 1543 19.0 63 20 110/60 98 Room Air on exam; aox3, nad. cv; s1,s2, rrr resp; clear abd; soft, nt, bs+ ext; no edema. Laboratory Tests 07/31 0744 Chemistry Sodium (137 - 145 mmol/L) 134 L Potassium (3.5 - 5.1 mmol/L) 3.9 Chloride (98 - 107 mmol/L) 99 Carbon Dioxide (22 - 30 mmol/L) 24 Anion Gap (5 - 16) 10 BUN (9 - 20 mg/dL) 35 H Creatinine (0.7 - 1.2 mg/dL) 0.7 Estimated GFR (>60 ml/min) > 60 BUN/Creatinine Ratio (7 - 25 %) 50.0 H Prealbumin (17.6 - 36.0 mg/dL) 16.8 L Hematology CBC w Diff NO MAN DIFF REQ WBC (4.8 - 10.8 /CUMM) 18.4 H RBC (4.70 - 6.10 /CUMM) 4.18 L Hgb (14.0 - 18.0 G/DL) 12.7 L Hct (42 - 52 %) 38.7 L MCV (80.0 - 94.0 FL) 92.6 MCH (27.0 - 31.0 PG) 30.5 RDW (11.5 - 14.5 %) 14.5 Plt Count (130 - 400 /CUMM) 399 MPV (7.4 - 10.4 FL) 7.3 L Gran % (42.2 - 75.2 %) 83.4 H Lymphocytes % (20.5 - 51.1 %) 10.5 L Monocytes % (1.7 - 9.3 %) 5.8 Eosinophils % (0 - 5 %) 0.2 Basophils % (0.0 - 2.0 %) 0.1 Absolute Granulocytes (1.4 - 6.5 /CUMM) 15.4 H Absolute Lymphocytes (1.2 - 3.4 /CUMM) 1.9 Absolute Monocytes (0.10 - 0.60 /CUMM) 1.1 H Absolute Eosinophils (0.0 - 0.7 /CUMM) 0 Absolute Basophils (0.0 - 0.2 /CUMM) 0 PUBS MCHC (33.0 - 37.0 G/DL) 32.9 L A/P; 81 y/o with pmh sig for hypertension, hyperlipidemia, COPD not on home oxygen, history of right-sided kidney tumor?, 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 repeat CT head shows stable hyperdensity may represent tiny focal area of hemorrhage versus underlying pathology such as mineralized cavernous angioma. Patient was followed by neurosurgery and no intervention was recommended. Initially was monitored in ICU and now transferred to the medicine floor. Also having this chronic dry cough. This morning he was hypotensive. We'll give some fluids and hold antihypertensives. Also noted bradycardia. Please call patient's primary care doctor or epic specialist and confirm the doses of his headache medications including hydrochlorothiazide, lisinopril as well as beta keaton. Please add antihistamine such as Claritin as well as steroid inhaler such as Flovent to help this cough. Please also had cough drops and continue the antitussive. Patient was evaluated by physical therapy and rehabilitation was recommended. DVT px; ALps.
[2017-07-31 14:08] VITALS: BP 104/60
--- NOTE | 2017-07-31 16:06 | Discharge Summary ---
See Addendum Visit Information Visit Dates Admission Date: 07/29/17 Discharge Date: 08/02/17 Hospital Course Course Attending Physician: Bharati Fregoso MD Primary Care Physician: Srinivas Bueno MD Consulting Request: 1 Consulting Specialty: Neurosurgery Consulting Physician: Reason for Consult: r/o bleed in the head Consulting Request: 2 Consulting Specialty: Infectious Disease Consulting Physician: Reason for Consult: recurrent urinary tract infections Hospital Course: Patient is a 81-year-old gentleman with a past medical history significant for hypertension, hyperlipidemia, COPD not on home oxygen, history of right-sided kidney tumor?, 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 Pertinent vitals on admission temperature 98.2, pulse 99, blood pressure 101/58 on room air. Pertinent labs on admission WBC 20 with granulocytosis no bandemia, hyponatremia 132 EKG - normal sinus rhythm with left anterior fascicular block. CXR: Hyperinflated lung field, consistent with likely underlying COPD. No radiographic evidence of superimposed pneumonia. CT head:The CT of the head shows 8 mm hyperdensity within the left frontal parafalcine region which may represent tiny focal area of hemorrhage versus underlying pathology such as mineralized cavernous angioma. Problem list 1. Mechanical fall with incidental finding of hyperdensity on head CT (focal hemorrhage vs possibel venous anomaly) 2. Persistent cough(? bronchitis) with mild COPD exacerbation 3. Chronic hyponatremia 4. History of hypertension and hyperlipidemia(? Heart disease) 5. History of recent hospitalization due to Urosepsis - now with asymptomatic pyuria growing E.coli Plan Mechanical fall Admitted to ICU as initially he was found to have Hyperdensity in the left frontal region. Upon repeat imaging it remained stable, so considered could represent focal hemorrhage vs venous anomaly. So not further evlauated and transferred to general medicine floor. He is alert and oriented X 3. restarted aspirin at discharge. Persistent cough(? Bacterial bronchitis) with mild COPD exacerbation Completed a course of azithromycin. started on IV steroids and then transitioned to oral steroids. stable on room air currently. CXR is negative for any pneumonia but did show heperinflated lung lomeli. TRC/Nebs. Chronic hyponatremia Patient did have a history of chronic hyponatremia. At admission it is 132, improved to 136 at the time of discharge. History of HTN and HLD (? Heart disease) Continue home medications. Patient declined any history of heart history but he is on beta keaton high dose statins and Cardizem. we tried to contact his PCP and spanish linguist but either of them aware of the reason or condition. He did have asymptomatic bradycardia during this hospitalization. Briefly his medication doses were reduced, however as it is asymptomatic - we continued his cardizem 240mg daily and reduced metoprolol tartarate 50 BID (at home on 75mg BID) History of recent hospitalization due to sepsis of urological origin He did have recurrent urinary infections. he apparently had a renal mass for which further imaging was not pursued during this hospitalization as he didnot have any symptoms although his cultures grew E.coli. It is likely that he had asymptomatic pyuria as he remained afebrile without any leukocytosis (per infectious disease expertise). He was kept off antibiotics after a single dose of ceftriaxone is given. he did have a history of nepharolithiasis which could also be a nidus for recurrent infections. Depression Continued citalopram 40mg dialy BPH Continued tamsulosin 0.4mg and finasteride 5mg daily DVT prophylaxis ALPS full code Complications: NONE Allergies: Coded Allergies: crab (DIARRHEA 07/29/17) Significant Procedures: Head and cervical CT IMPRESSION: 1. The CT of the head shows 8 mm hyperdensity within the left frontal parafalcine region with Hounsfield value of 50, may represent tiny focal area of hemorrhage versus underlying pathology such as mineralized cavernous angioma. Further differentiation cannot be made based on this imaging appearance alone. Follow-up repeat noncontrast CT scan in 6 hours or a follow-up MRI or clinical management as appropriate is recommended. 2. No CT evidence of any acute fracture no subluxation or dislocation or prespinal soft tissue hematoma present at the cervical spine. CXR on 07/29/17 IMPRESSION: Hyperinflated lung field, consistent with likely underlying COPD. No radiographic evidence of superimposed pneumonia. Repeat head CT on 07/29/17 IMPRESSION: Stable hyperdensity within the posterior aspect of the left frontal lobe. This is nonspecific and may represent a cavernous hemangioma or developmental venous anomaly. Given stability, this is felt to be unlikely to represent an acute focus of intracranial hemorrhage. Consider further evaluation with MRI. Minimal fluid in the left maxillary and right sphenoid sinuses, unchanged. Disposition Summary Disposition Principal Diagnosis: 1. Acute exacerbation of COPD with possible bronchitis. Additional Diagnosis: Abnormal head CT, following a fall which may be related to hemorrhage versus underlying lesion. History of minimal fluid in the left maxillary and right sphenoid sinuses, unchanged. Mild hyponatremia History of hypertension and hyperlipidemia. Mild leukocytosis Discharge Disposition: short term rehab Discharge Instructions General Discharge Information Code Status: Full Code Patient's Diet: Heart healthy diet Patient's Activity: As tolerated Follow-Up Instructions/Appts: Please follow up with your PCP in a week Please follow up with your Neurologist in a week Please follow up with your booking officer in a week Medications at Discharge Discharge Medications: Stop taking the following medications: Prednisone (Prednisone) 10 MG TABLET ORAL As Directed Qty = 40 Metoprolol Tartrate (Metoprolol Tartrate) 25 MG TABLET ORAL TWICE DAILY Qty = 180 Tiotropium [place] (Spiriva) (Unknown Strength) CAP.W.DEV Inhale through mouth DAILY Cyanocobalamin (Vitamin B-12) (Vitamin B-12) 100 MCG TABLET ORAL DAILY Continue taking these medications: Aspirin (Ecotrin*) 81 MG TABLET.DR 1 Tablet ORAL DAILY Comments: LAST GIVEN: 08/02/16 1600 Atorvastatin Calcium (Atorvastatin Calcium) 40 MG TABLET 1 Tablet ORAL DAILY Qty = 90 Comments: Last Taken: 08/02/17 Time: 1600 Citalopram Hydrobromide (Citalopram HBr) 40 MG TABLET 1 Tablet ORAL DAILY Qty = 30 Comments: Last Taken: 08/02/17 Time: 1600 Cyanocobalamin (Vitamin B-12) 1,000 MCG TABLET 1 Tablet ORAL DAILY Comments: Last Taken: 08/02/17 Time: 9:30 AM Finasteride (Finasteride) 5 MG TABLET 1 Tablet ORAL DAILY Qty = 30 Comments: Last Taken: 08/02/17 Time: 1600 Hydrochlorothiazide (Hydrochlorothiazide) 25 MG TABLET 1 Tablet ORAL DAILY Qty = 90 Tamsulosin HCl (Tamsulosin HCl) 0.4 MG CAP.ER.24H 1 Capsule ORAL DAILY Qty = 90 Comments: Last Taken: 08/02/17 Time: 1600 Lisinopril (Lisinopril) 20 MG TABLET 1 Tablet ORAL DAILY Qty = 90 Comments: Last Taken: 08/02/17 Time: 9:00 AM Mometasone/Formoterol (Dulera 200 Mcg/5 Mcg Inhaler) 200 MCG-5 MCG/ACTUATION HFA.AER.AD 2 Puff Inhale through mouth TWICE DAILY Qty = 13 Diltiazem HCl (Cardizem Cd) 240 MG CAP.ER.24H 1 Capsule ORAL DAILY Qty = 90 Comments: NOT GIVEN SEVERAL DAYS; TO BE RESTARTED PER MD AT DISCHARGE. Ipratropium [place] (Atrovent Hfa) 17 MCG/ACTUATION HFA.AER.AD 2 PUFF Inhale through mouth TWICE DAILY Qty = 13 Comments: Last Taken: 08/02/17 Time: 9:00 AM Albuterol Sulfate (Ventolin Hfa) 90 MCG HFA.AER.AD 2 Puff Inhale through mouth Q4H as needed for WHEEZE/SOB Qty = 18 Comments: NOT GIVEN IN HOSPITAL Vit C/E/Zn/Coppr/Lutein/Zeaxan (Preservision Areds 2 Softgel) 250-200-40 CAPSULE 1 SGL ORAL TWICE DAILY Benzonatate (Tessalon Perle) 100 MG CAPSULE 1 Capsule ORAL THREE TIMES DAILY as needed for COUGH Comments: NOT GIVEN IN HOSPTIAL Trazodone HCl (Trazodone HCl) 50 MG TABLET 1 Tablet ORAL As Directed Comments: NOT GIVEN IN HOSPITAL Start taking the following new medications: Metoprolol Tartrate (Lopressor) 50 MG TABLET 1 Tablet ORAL TWICE DAILY Qty = 60 No Refills Comments: Last Taken: LAST GIVEN 25MG PO 08/02/17 9:20 AM Time: Copies To: Srinivas Bueno MD Attending MD Review Statement Documenting Attending: Bharati Fregoso MD
--- NOTE | 2017-07-31 16:16 | Patient Discharge Instructions ---
Discharge Instructions General Discharge Information You were seen/treated for: Acute COPD exacerbation Fall Special Instructions: Please follow up with your pcp in 1-2 weeks. Please follow up with your home stager in 1-2 weeks regarding your medications. Please continue your medications as perscribed. Diet Continue normal diet: Yes Recommended Diet: Regular Activity Full Activity/No Limits: Yes Activity Self Limited: Yes Acute Coronary Syndrome Inclusion Criteria At DC or during hospital stay patient has or had the following: ACS DIAGNOSIS No Discharge Core Measures Meds if any: Prescribed or Continued at Discharge Meds if any: NOT Prescribed or Continued at Discharge Congestive Heart Failure Inclusion Criteria At DC or during hospital stay patient has or had the following: CHF DIAGNOSIS No Discharge Core Measures Meds if any: Prescribed or Continued at Discharge Meds if any: NOT Prescribed or Continued at Discharge Cerebrovascular accident Inclusion Criteria At DC or during hospital stay patient has or had the following: CVA/TIA Diagnosis No Discharge Core Measures Meds if any: Prescribed or Continued at Discharge Meds if any: NOT Prescribed or Continued at Discharge Venous thromboembolism Inclusion Criteria VTE Diagnosis No VTE Type NONE VTE Confirmed by (Test) NONE Discharge Core Measures - Per Current guidelines, there needs to be overlap - treatment for the first 5 days of Warfarin therapy. - If discharged on Warfarin prior to 5 days of - overlap therapy, the patient will need to be - assessed for post discharge needs including - *Post discharge parental anticoagulation - *Warfarin and/or parental anticoagulation education - *Follow up date to check INR post discharge At least 5 days overlap therapy as Inpatient No Meds if any: Prescribed or Continued at Discharge Note: Overlap Therapy is Warfarin and Anticoagulant Meds if any: NOT Prescribed or Continued at Discharge
[2017-07-31 22:36] VITALS: BP 120/40
[2017-07-31 22:53] VITALS: BP 112/54
[2017-08-01 06:00] VITALS: BP 128/76
[2017-08-01 09:02] LABS: ABSOLUTE BASOPHIL COUNT 0 /CUMM (0.0-0.2); ABSOLUTE EOSINOPHIL COUNT 0 /CUMM (0.0-0.7); ABSOLUTE GRANULOCYTE CT 12.5 /CUMM (1.4-6.5); ABSOLUTE MONOCYTE COUNT 0.8 /CUMM (0.10-0.60); BASOPHIL % 0 % (0.0-2.0); EOSINOPHIL % 0.2 % (0-5); GRANULOCYTE % 81.3 % (42.2-75.2); HEMATOCRIT 38.4 % (42-52); MEAN CORPUSCULAR HGB 30.6 PG (27.0-31.0); MEAN CORPUSCULAR HGB CONC 33.6 G/DL (33.0-37.0); MEAN CORPUSCULAR VOLUME 91.3 FL (80.0-94.0); MEAN PLATELET VOLUME 7.1 FL (7.4-10.4); PLATELET COUNT 401 /CUMM (130-400); RBC DISTRIBUTION WIDTH 14.6 % (11.5-14.5); RED BLOOD CELL CT 4.21 /CUMM (4.70-6.10); WHITE BLOOD CELL COUNT 15.4 /CUMM (4.8-10.8)
[2017-08-01] MEDS ORDERED: PREDNISONE10 M2 PO (09:34)
[2017-08-01] MEDS ORDERED: METOPROLOL TART50 M1 PO (09:34)
[2017-08-01] MEDS ORDERED: LORATADINE10 M1 PO (09:34)
[2017-08-01] MEDS ORDERED: AZITHROMYCIN250 M1 PO (09:34)
--- NOTE | 2017-08-01 10:04 | PN- Housestaff ---
Aníbal BIRD,[facility] 08/01/17 1004: Subjective Follow-up For: fall copd UTI Subjective: No acute events overnight. Patient states he is doing fine. States increased urinary frequency but no dysuria. States he feels like he does have a UTI. Review of Systems Constitutional: Reports: no symptoms. Cardiovascular: Reports: no symptoms. Respiratory: Reports: no symptoms. Gastrointestinal: Reports: no symptoms. Genitourinary: Reports: frequency. Musculoskeletal: Reports: no symptoms. Objective Last 24 Hrs of Vital Signs/I&O Vital Signs Date Time Temp Pulse Resp B/P B/P Pulse O2 O2 Flow FiO2 Mean Ox Delivery Rate 08/01 1419 97.7 64 20 112/54 93 Room Air 08/01 1400 94 Room Air 08/01 0947 54 10654 08/01 0946 54 10608/01 0600 97.8 70 20 128/76 95 Room Air 07/31 2305 78 112/54 07/31 2253 78 11254 07/31 2236 97.4 80 22 120/40 94 Intake & Output 08/01 1600 08/01 0800 08/01 0000 Intake Total 900 700 200 Output Total 400 150 Balance 900 300 50 Intake, IV 400 Intake, Oral 900 300 200 Output, Urine 400 150 Patient 138 lb Weight Weight Bed scale Measurement Method Physical Exam General Appearance: Alert, Cooperative, No Acute Distress Cardiovascular: Regular Rate, Normal S1, Normal S2 Lungs: decreased lung sounds b/l Abdomen: Normal Bowel Sounds, Soft, No Tenderness Vascular: 2+ radial pulses Current Medications: Current Medications Sig/[place] Start time Last Medication Dose Route Stop Time Status Admin Acetaminophen 650 MG Q6P PRN 07/29 1899 AC PO Acetaminophen 1,000 MG Q6P PRN 07/29 190 AC IV Albuterol Sulfate 3 ML Q4P PRN 07/30 1130 AC INH Atorvastatin Calcium 40 MG 1700 07/30 1700 AC 07/31 PO 1625 Azithromycin 250 MG DAILY 07/29 190 AC 08/01 PO 08/03 1001 0946 Budesonide/ 2 PUF BID 07/29 2199 AC 08/01 Formoterol Fumarate INH 0943 Ceftriaxone Sodium 1,000 MG DAILY 08/01 0830 DC 08/01 IV 0940 Citalopram 40 MG 1700 07/30 170 AC 07/31 Hydrobromide PO 1625 Cyanocobalamin 1,000 MCG DAILY 07/30 1000 AC 08/01 PO 0945 Diltiazem HCl 240 MG DAILY 07/30 1000 DC 07/30 PO 0907 Finasteride 5 MG 1700 07/30 1700 AC 07/31 PO 1625 Guaifenesin 10 ML .STK-MED ONE 08/01 0113 DC PO 08/01 0114 Guaifenesin 10 ML Q6P PRN 07/29 1900 AC 08/01 PO 0113 Hydrochlorothiazide 25 MG DAILY 07/30 1000 DC 07/30 PO 0907 Lisinopril 20 MG DAILY 07/30 1000 AC 07/30 PO 0908 Loratadine 10 MG DAILY 07/31 1445 AC 08/01 PO 0945 Metoprolol Tartrate 25 MG BID 08/01 2200 AC PO Metoprolol Tartrate 50 MG BID 07/31 2200 DC 08/01 PO 0947 Polyethylene Glycol 17 GM DAILY NEEDED PRN 07/31 1500 AC 07/31 PO 1827 Prednisone 10 MG DAILY 08/02 1000 AC PO 08/02 1001 Prednisone 20 MG DAILY 08/01 1000 AC 08/01 PO 08/02 0959 0945 Senna 187 MG AT BEDTIME NEED.. 07/31 1500 AC 07/31 PO 1827 Sodium Chloride 1,000 ML Q20H 07/31 1500 DC 07/31 IV 1632 Tamsulosin HCl 0.4 MG 1700 07/30 1700 AC 07/31 PO 1626 Tiotropium [place] 1 PUF DAILY 07/29 1910 AC 08/01 INH 0942 Trazodone HCl 50 MG AT BEDTIME PRN 07/30 220 AC PO Last 24 Hrs of Lab/Chung Results Last 24 Hrs of Labs/Mics: Laboratory Tests 08/01/17 0810: Anion Gap 9, Estimated GFR > 60, BUN/Creatinine Ratio 47.5 H, CBC w Diff NO MAN DIFF REQ, RBC 4.21 L, MCV 91.3, MCH 30.6, RDW 14.6 H, MPV 7.1 L, Gran % 81.3 H, Lymphocytes % 13.3 L, Monocytes % 5.2, Eosinophils % 0.2, Basophils % 0, Absolute Granulocytes 12.5 H, Absolute Lymphocytes 2.0, Absolute Monocytes 0.8 H, Absolute Eosinophils 0, Absolute Basophils 0, PUBS MCHC 33.6 Assessment/Plan Assessment: 81-year-old gentleman with a PMHx of HTN, HLD, COPD not on home oxygen, history of right-sided kidney tumor , 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 #fall Etiology for his fall is likely mechanical, but other causes such as dehydration from decreased po intake, persistent cough or AECOP are possible etiologies. Initial head ct concerning for 8 mm hyperdensity within the left frontal parafalcine region with Hounsfield value of 50, may represent tiny focal area of hemorrhage versus underlying pathology such as mineralized cavernous angioma. Repeat head ct: Stable hyperdensity within the posterior aspect of the left frontal lobe. This is nonspecific and may represent a cavernous hemangioma or developmental venous anomaly. Given stability, this is felt to be unlikely to represent an acute focus of intracranial hemorrhage Patient was seen by neurosurgery who stated patient is ok to be dc'ed and no f/u needed -PT recommending STR for his R foot drop #copd WBC 20.7(07/29)-->15.4(08/01) CXR: Hyperinflated lung field, consistent with likely underlying COPD - Continue po steroids taper. - Please continue azithromycin (day 4). - Continue symbicort, ipratropium, and HEYDI - TRC nebs, and supplemental oxygen if needed. -cont loratidine #positive UA and urine cx: Patient has positive LE and nitrites Ucx growing gram negative rods recently Tx for UTI at [facility] May be a cause of his fall -E.Coli sensitve only to IV abx. -request records from [place] regarding prolonged UTI treatment and sensitivites of cultures -hold off ceftriaxone and antibiotics for now #hyponatremia Na 132 -> 136 Urine lytes- osm, lytes pending are all normal - most likely due to poor po intake - cont to monitor and encourage po intake #hx of htn -continue home dose of lisinopril, hctz, diltiazem. #Mental health -Continue citalopram, trazodone #constipation -cont senna/miralax -ensure patient has BM before discharge #bph -cont flomax, finasteride #DVT PPx- ALPs for now. #Diet- heart healthy diet. #Full code Problem List: 1. Fall 2. COPD exacerbation 3. Hyponatremia Pain Ratin Pain Location: none Pain Goal: Pain 4 or less Pain Plan: pain pathway Tomorrow's Labs & Rationales: cbc hetalp Judith Sam MD 08/01/17 1137: Attending MD Review Statement Attending Statement Attending MD Statement: examined this patient, discuss w/resident/PA/ENVIRONMENTAL ENGINEERING PROFESSOR, agreed w/resident/PA/ENVIRONMENTAL ENGINEERING PROFESSOR, reviewed EMR data (avail), discussed with nursing, discussed with case mgmt, reviewed images, amended to note Attending Assessment/Plan: Patient seen and examined, denies any complaints. This am his BP/HR is low. Patient himself denies any dizziness. Vital Signs Date Time Temp Pulse Resp B/P B/P Pulse O2 O2 Flow FiO2 Mean Ox Delivery Rate 08/01 0947 54 106/54 08/01 0946 54 10608/01 0600 97.8 70 20 128/76 95 Room Air 07/31 2305 78 112/54 07/31 2253 78 11254 07/31 2236 97.4 80 22 120/40 94 07/31 1626 116/64 07/31 1408 98.1 59 18 104/60 95 Room Air 07/31 1305 Room Air on exam; aox3, nad. cv; s1,s2 rrr, bradycardia. resp; clear abd; soft, nt, bs+ ext: no edema. Laboratory Tests 08/01 0810 Chemistry Sodium (137 - 145 mmol/L) 136 L Potassium (3.5 - 5.1 mmol/L) 3.8 Chloride (98 - 107 mmol/L) 101 Carbon Dioxide (22 - 30 mmol/L) 25 Anion Gap (5 - 16) 9 BUN (9 - 20 mg/dL) 38 H Creatinine (0.7 - 1.2 mg/dL) 0.8 Estimated GFR (>60 ml/min) > 60 BUN/Creatinine Ratio (7 - 25 %) 47.5 H Hematology CBC w Diff NO MAN DIFF REQ WBC (4.8 - 10.8 /CUMM) 15.4 H RBC (4.70 - 6.10 /CUMM) 4.21 L Hgb (14.0 - 18.0 G/DL) 12.9 L Hct (42 - 52 %) 38.4 L MCV (80.0 - 94.0 FL) 91.3 MCH (27.0 - 31.0 PG) 30.6 RDW (11.5 - 14.5 %) 14.6 H Plt Count (130 - 400 /CUMM) 401 H MPV (7.4 - 10.4 FL) 7.1 L Gran % (42.2 - 75.2 %) 81.3 H Lymphocytes % (20.5 - 51.1 %) 13.3 L Monocytes % (1.7 - 9.3 %) 5.2 Eosinophils % (0 - 5 %) 0.2 Basophils % (0.0 - 2.0 %) 0 Absolute Granulocytes (1.4 - 6.5 /CUMM) 12.5 H Absolute Lymphocytes (1.2 - 3.4 /CUMM) 2.0 Absolute Monocytes (0.10 - 0.60 /CUMM) 0.8 H Absolute Eosinophils (0.0 - 0.7 /CUMM) 0 Absolute Basophils (0.0 - 0.2 /CUMM) 0 PUBS MCHC (33.0 - 37.0 G/DL) 33.6 A/P; 81 y/o with pmh sig for hypertension, hyperlipidemia, COPD not on home oxygen, history of right-sided kidney tumor?, 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 repeat CT head shows stable hyperdensity may represent tiny focal area of hemorrhage versus underlying pathology such as mineralized cavernous angioma. Patient was followed by neurosurgery and no intervention was recommended. Initially was monitored in ICU and now transferred to the medicine floor. Also having this chronic dry cough. Patient also has UTI. No having bradycardia and hypotension. I called patient's daughter who told me that 2 years ago same thing happened when his blood pressure and heart rate dropped and his blood pressure medications needed to be adjusted. Patient apparently does not drink water. Patient was able to tell last that his test car driver is Dr. Alon Richmond up in [place]. Please call his test car driver and get some collateral information. Please obtain an EKG. Give consulted cardiology Dr. Peguero for adjustment office blood pressure/rate controlling medications. Continue ceftriaxone for UTI, patient growing Escherichia coli. Continue inhalers, antihistamine and antitussive. Continue prednisone taper and complete total of 5 days of azithromycin. DVT px; ALPS.
--- NOTE | 2017-08-01 13:54 | Cons- Cardiology ---
General Information and HPI Consulting Request Date of Consult: 08/01/17 Requested By: Bharati Fregoso MD Reason for Consult: Bradycardia Source of Information: patient, old records Exam Limitations: no limitations History of Present Illness: The patient is wearing is 81-year-old male. 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 The patient is now in the hospital and I was asked see the patient today for evaluation of episodes of bradycardia. The patient's past history is remarkable for hypertension, hyperlipidemia, chronic lung disease, etc. He denies any other significant cardiac issues or problems. He has been followed by cardiology for The patient is now in the hospital after presenting to the emergency room for evaluation of coughing and a subsequent fall. In the emergency him, the patient's head CT showed a 8 mm hyperdensity within the left frontal Parafalcine region According to the nursing staff, the patient was noted to be intermittently bradycardic with heart rates in the high 40s or low 50s, especially while sleeping. No ECG was performed. No profound bradycardia was detected. The patient denies any symptoms. Of note, the patient is on oral beta blockers and calcium channel blockers. Allergies/Medications Allergies: Coded Allergies: crab (DIARRHEA 07/29/17) Home Med List: Albuterol Sulfate (Ventolin Hfa) 90 MCG HFA.AER.AD 2 PUF INH Q4H PRN WHEEZE/ SOB (Reported) Aspirin (Ecotrin*) 81 MG TABLET.DR 1 TAB PO DAILY HEART/BLOOD (Reported) Atorvastatin Calcium 40 MG TABLET 1 TAB PO DAILY CHOLESTEROL (Reported) Azithromycin 250 MG TABLET 1 TAB PO DAILY COPD PLEASE TAKE ON 08/02 Benzonatate (Tessalon Perle) 100 MG CAPSULE 1 CAP PO TID PRN COUGH (Reported) Citalopram Hydrobromide (Citalopram HBr) 40 MG TABLET 1 TAB PO DAILY MENTAL HEALTH (Reported) Cyanocobalamin (Vitamin B-12) 1,000 MCG TABLET 1 TAB PO DAILY SUPPLEMENT ( Reported) Cyanocobalamin (Vitamin B-12) (Vitamin B-12) 100 MCG TABLET 1 TAB PO DAILY SUPPLEMENT (Reported) Diltiazem HCl (Cardizem Cd) 240 MG CAP.ER.24H 1 CAP PO DAILY HEART/BP ( Reported) Finasteride 5 MG TABLET 1 TAB PO DAILY PROSTATE (Reported) Hydrochlorothiazide 25 MG TABLET 1 TAB PO DAILY DIURETIC (Reported) Ipratropium [place] (Atrovent Hfa) 17 MCG/ACTUATION HFA.AER.AD 2 PUFF INH BID COPD (Reported) Lisinopril 20 MG TABLET 1 TAB PO DAILY BP (Reported) Loratadine 10 MG TABLET 1 TAB PO DAILY HAYFEVER Metoprolol Tartrate 25 MG TABLET 75 MG PO BID HEART/BP (Reported) Metoprolol Tartrate 50 MG TABLET 1 TAB PO BID BLOOD PRESSURE Mometasone/Formoterol (Dulera 200 Mcg/5 Mcg Inhaler) 200 MCG-5 MCG/ACTUATION HFA.AER.AD 2 PUF INH BID COPD (Reported) Prednisone 10 MG TABLET STEROID TAPER (Reported) Prednisone 10 MG TABLET 1 TAB PO DAILY COPD PLEASE TAKE ON 08/02 TO FINISH STEROID TAPER Tamsulosin HCl 0.4 MG CAP.ER.24H 1 CAP PO DAILY (Reported) Tiotropium [place] (Spiriva) (Unknown Strength) CAP.W.DEV (Unknown Dose) INH DAILY COPD (Reported) Trazodone HCl 50 MG TABLET 1 TAB PO AD MENTAL HEALTH/SLEEP (Reported) Vit C/E/Zn/Coppr/Lutein/Zeaxan (Preservision Areds 2 Softgel) 250-200-40 CAPSULE 1 SGL PO BID SUPPLEMENT (Reported) Current Medications: Current Medications Sig/[place] Start time Last Medication Dose Route Stop Time Status Admin Acetaminophen 650 MG Q6P PRN 07/29 1900 AC PO Acetaminophen 1,000 MG Q6P PRN 07/29 190 AC IV Albuterol Sulfate 3 ML Q4P PRN 07/30 1130 AC INH Atorvastatin Calcium 40 MG 07/30 1700 AC 07/31 PO 1625 Azithromycin 250 MG DAILY 07/29 1900 AC 08/01 PO 08/03 1001 0946 Budesonide/ 2 PUF BID 07/29 220 AC 08/01 Formoterol Fumarate INH 0943 Ceftriaxone Sodium 1,000 MG DAILY 08/01 0830 AC 08/01 IV 0940 Citalopram 40 MG 07/30 1700 07/31 Hydrobromide PO 1625 Cyanocobalamin 1,000 MCG DAILY 07/30 1000 AC 08/01 PO 0945 Diltiazem HCl 240 MG DAILY 07/30 1000 AC 07/30 PO 0907 Finasteride 5 MG 07/30 1700 AC 07/31 PO 1625 Fluticasone 2 PUF BID PRN 07/31 1445 CAN Propionate INH Fluticasone 2 PUF BID 07/31 1432 CAN Propionate INH Guaifenesin 10 ML .STK-MED ONE 08/01 0113 DC PO 08/01 0114 Guaifenesin 10 ML Q6P PRN 07/29 1900 AC 08/01 PO 0113 Hydrochlorothiazide 25 MG DAILY 07/30 1000 AC 07/30 PO 0907 Lisinopril 20 MG DAILY 07/30 1000 AC 07/30 PO 0908 Loratadine 10 MG DAILY 07/31 1445 AC 08/01 PO 0945 Loratadine 10 MG DAILY 07/31 1440 CAN PO Metoprolol Tartrate 25 MG BID 08/01 2200 AC PO Metoprolol Tartrate 50 MG BID 07/31 2200 DC 08/01 PO 0947 Non-Formulary 0 SEE ADMIN CRITERIA 07/31 1445 CAN Medication ANY Polyethylene Glycol 17 GM DAILY NEEDED PRN 07/31 1500 AC 07/31 PO 1827 Prednisone 10 MG DAILY 08/02 1000 AC PO 08/02 1001 Prednisone 20 MG DAILY 08/01 1000 AC 08/01 PO 08/02 0959 0945 Senna 187 MG AT BEDTIME NEED.. 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 Home Smoking Status: Former Smoker ETOH Use: denies use Illicit Drug Use: denies illicit drug use Functional Ability ADLs Independent: dressing, eating, toileting, bathing. Ambulation: independent IADLs Unknown: shopping, housework, finances, food prep, telephone, transportation, medication admin. Exam & Diagnostic Data Vital Signs and I&O Vital Signs Date Time Temp Pulse Resp B/P B/P Pulse O2 O2 Flow FiO2 Mean Ox Delivery Rate 08/01 0947 54 106/54 08/01 0946 54 106/54 08/01 0600 97.8 70 20 128/76 95 Room Air 07/31 2305 78 112/54 07/31 2253 78 112/54 07/31 2236 97.4 80 22 120/40 94 07/31 1626 116/64 07/31 1408 98.1 59 18 104/60 95 Room Air Intake & Output 08/01 1600 08/01 0800 08/01 0000 07/31 1600 07/31 0800 07/31 0000 Intake Total 700 200 800 600 120 Output Total 400 150 600 500 200 Balance 300 50 200 100 -80 Intake, IV 400 20 Intake, Oral 300 200 800 600 100 Number 1 Bowel Movements Output, Urine 400 150 600 500 200 Patient 138 lb 163 lb Weight Weight Bed scale Bed scale Measurement Method Physical Exam: General Appearance Alert, Oriented X3 Skin No Rashes, No Breakdown HEENT Atraumatic Neck Supple, No JVD, No thryomegaly, carotids normal bilaterally Cardiovascular Regular Rate, Normal S1, Normal S2, 1/6 systolic ejection murmur left sternal border Lungs Clear to Auscultation and percussion bilaterally Neurological Normal Gait, Normal Speech, Strength at 5/5 X4 Ext Labs/Chung Results: Laboratory Tests 08/01 07/31 0810 0744 Chemistry Sodium (137 - 145 mmol/L) 136 L 134 L Potassium (3.5 - 5.1 mmol/L) 3.8 3.9 Chloride (98 - 107 mmol/L) 101 99 Carbon Dioxide (22 - 30 mmol/L) 25 24 Anion Gap (5 - 16) 9 10 BUN (9 - 20 mg/dL) 38 H 35 H Creatinine (0.7 - 1.2 mg/dL) 0.8 0.7 Estimated GFR (>60 ml/min) > 60 > 60 BUN/Creatinine Ratio (7 - 25 %) 47.5 H 50.0 H Prealbumin (17.6 - 36.0 mg/dL) 16.8 L Hematology CBC w Diff NO MAN DIFF REQ NO MAN DIFF REQ WBC (4.8 - 10.8 /CUMM) 15.4 H 18.4 H RBC (4.70 - 6.10 /CUMM) 4.21 L 4.18 L Hgb (14.0 - 18.0 G/DL) 12.9 L 12.7 L Hct (42 - 52 %) 38.4 L 38.7 L MCV (80.0 - 94.0 FL) 91.3 92.6 MCH (27.0 - 31.0 PG) 30.6 30.5 RDW (11.5 - 14.5 %) 14.6 H 14.5 Plt Count (130 - 400 /CUMM) 401 H 399 MPV (7.4 - 10.4 FL) 7.1 L 7.3 L Gran % (42.2 - 75.2 %) 81.3 H 83.4 H Lymphocytes % (20.5 - 51.1 %) 13.3 L 10.5 L Monocytes % (1.7 - 9.3 %) 5.2 5.8 Eosinophils % (0 - 5 %) 0.2 0.2 Basophils % (0.0 - 2.0 %) 0 0.1 Absolute Granulocytes (1.4 - 6.5 /CUMM) 12.5 H 15.4 H Absolute Lymphocytes (1.2 - 3.4 /CUMM) 2.0 1.9 Absolute Monocytes (0.10 - 0.60 /CUMM) 0.8 H 1.1 H Absolute Eosinophils (0.0 - 0.7 /CUMM) 0 0 Absolute Basophils (0.0 - 0.2 /CUMM) 0 0 PUBS MCHC (33.0 - 37.0 G/DL) 33.6 32.9 L Diagnostic Data EKG Results Normal sinus rhythm; heart rate 60s; nonspecific changes. Assessment/Plan Assessment/Plan Assessment: 1. Sinus bradycardia 2. Hypertension 2. COPD 4. Fall with abnormal head CT 5. Mild hyponatremia 6. The gross cytosis Recommendations: -At the present time, the patient's heart rate seems reasonably well-controlled. His blood pressure has been stable. He has very mild intermittent bradycardia with resting heart rates in the 50s which occasionally seemed to drop into the high 40s when sleeping. At the moment, I do not see any indication for any changes. -Continue current medication regimen. If absolutely necessary, we could taper his metoprolol to 50 mg twice a day. -Ambulate as tolerated -As an outpatient, the patient could have a Holter monitor or event monitor performed to better exclude other issues. The patient should follow-up with his regular light fixture servicer Dr. Richmond as an outpatient. -Echocardiogram pending. This could be performed later as an outpatient. -Please make sure her TSH is checked Consult Acknowledgment - Thank you for your consult request.
[2017-08-01 14:19] VITALS: BP 112/54
[2017-08-01 22:22] VITALS: BP 110/58
[2017-08-02 06:19] VITALS: BP 130/70
--- NOTE | 2017-08-02 07:21 | PN- Housestaff ---
Aníbal BIRD,[facility] 08/02/17 0721: Subjective Follow-up For: mechanical fall ?uti Subjective: No acute events overnight. Pt complains of increased urinary frequency and nocturia. Thinks he has UTI. Denies dysuria. Review of Systems Constitutional: Reports: no symptoms. Cardiovascular: Reports: no symptoms. Respiratory: Reports: no symptoms. Gastrointestinal: Reports: no symptoms. Genitourinary: Reports: frequency, nocturia. Denies: dysuria. Musculoskeletal: Reports: no symptoms. Objective Last 24 Hrs of Vital Signs/I&O Vital Signs Date Time Temp Pulse Resp B/P B/P Pulse O2 O2 Flow FiO2 Mean Ox Delivery Rate 08/02 0927 130/70 08/02 0926 130/70 08/02 0619 97.4 63 20 130/70 94 Room Air 08/01 2222 97.6 81 20 110/58 96 Room Air 08/01 2211 97.6 81 20 110/58 08/01 1419 97.7 64 20 112/54 93 Room Air 08/01 1400 94 Room Air Intake & Output 08/02 1600 08/02 0800 08/02 0000 Intake Total 480 700 Output Total 450 500 Balance 30 200 Intake, Oral 480 700 Output, Urine 450 500 Physical Exam General Appearance: Alert, Oriented X3, Cooperative, No Acute Distress Cardiovascular: Regular Rate, Normal S1, Normal S2 Lungs: decreased lung sounds b/l Abdomen: Normal Bowel Sounds, Soft, No Tenderness Extremities: 2+ radial pulses Current Medications: Current Medications Sig/[place] Start time Last Medication Dose Route Stop Time Status Admin Acetaminophen 650 MG Q6P PRN 07/29 1900 AC PO Acetaminophen 1,000 MG Q6P PRN 07/29 190 AC IV Albuterol Sulfate 3 ML Q4P PRN 07/30 1130 AC INH Atorvastatin Calcium 40 MG 07/30 1700 AC 08/01 PO 1724 Azithromycin 250 MG DAILY 07/29 1900 AC 08/02 PO 08/03 1001 0926 Budesonide/ 2 PUF BID 07/29 2199 AC 08/02 Formoterol Fumarate INH 0924 Ceftriaxone Sodium 1,000 MG DAILY 08/01 0830 DC 08/01 IV 0940 Citalopram 40 MG 1700 07/30 1700 AC 08/01 Hydrobromide PO 1724 Cyanocobalamin 1,000 MCG DAILY 07/30 1000 AC 08/02 PO 0926 Diltiazem HCl 240 MG DAILY 07/30 1000 DC 07/30 PO 0907 Finasteride 5 MG 1700 07/30 1700 AC 08/01 PO 1725 Guaifenesin 10 ML Q6P PRN 07/29 1900 AC 08/01 PO 0113 Hydrochlorothiazide 25 MG DAILY 07/30 1000 DC 07/30 PO 0907 Lisinopril 20 MG DAILY 07/30 1000 AC 08/02 PO 0927 Loratadine 10 MG DAILY 07/31 1445 AC 08/02 PO 0926 Melatonin 5 MG ONCE ONE 08/02 0045 DC PO 08/02 0046 Metoprolol Tartrate 25 MG BID 08/01 2200 AC 08/02 PO 0926 Polyethylene Glycol 17 GM DAILY NEEDED PRN 07/31 1500 AC 07/31 PO 1827 Prednisone 10 MG DAILY 08/02 1000 DC 08/02 PO 08/02 1001 0931 Prednisone 20 MG DAILY 08/01 1000 DC 08/01 PO 08/02 0959 0945 Senna 187 MG AT BEDTIME NEED.. 07/31 1500 AC 07/31 PO 1827 Tamsulosin HCl 0.4 MG 0 07/30 1700 AC 08/01 PO 1724 Tiotropium [place] 1 PUF DAILY 07/29 191 AC 08/02 INH 0925 Trazodone HCl 50 MG AT BEDTIME PRN 07/30 220 AC PO Last 24 Hrs of Lab/Chung Results Last 24 Hrs of Labs/Mics: Laboratory Tests 08/02/17 0740: Anion Gap 9, Estimated GFR > 60, BUN/Creatinine Ratio 40.0 H, CBC w Diff NO MAN DIFF REQ, RBC 4.22 L, MCV 92.2, MCH 30.6, MCHC 33.2, RDW 14.8 H, MPV 6.8 L, Gran % 73.8, Lymphocytes % 18.2 L, Monocytes % 6.9, Eosinophils % 0.7, Basophils % 0.4, Absolute Granulocytes 9.8 H, Absolute Lymphocytes 2.4, Absolute Monocytes 0.9 H, Absolute Eosinophils 0.1, Absolute Basophils 0 Assessment/Plan Assessment: A: 81-year-old gentleman with a PMHx of HTN, HLD, COPD not on home oxygen, history of right-sided kidney tumor , 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 P: #fall Etiology for his fall is likely mechanical, but other causes such as dehydration from decreased po intake, persistent cough or AECOP are possible etiologies. Initial head ct concerning for 8 mm hyperdensity within the left frontal parafalcine region with Hounsfield value of 50, may represent tiny focal area of hemorrhage versus underlying pathology such as mineralized cavernous angioma. Repeat head ct: Stable hyperdensity within the posterior aspect of the left frontal lobe. This is nonspecific and may represent a cavernous hemangioma or developmental venous anomaly. Given stability, this is felt to be unlikely to represent an acute focus of intracranial hemorrhage Patient was seen by neurosurgery who stated patient is ok to be dc'ed and no f/u needed -PT recommending STR for his R foot drop #copd WBC 20.7(07/29)-->13.3(08/02) CXR: Hyperinflated lung field, consistent with likely underlying COPD - finish steroid taper today - finish azithromycin (day 5). - Continue symbicort, ipratropium, and HEYDI - TRC nebs, and supplemental oxygen if needed. - cont loratidine #asymptomatic bacteuria Patient has positive LE and nitrites Ucx growing gram negative rods recently Tx for UTI at [facility] Consulted ID who thought he has asymptomatic bacteruria -continue off antibiotics #hx of renal mass -may be a possible cause of his urinary symptoms, follow up outpatient #bradycardia and hypotensoin Confirmed with his PCP and caridologist that patient was previously on 75 mg BID metorpolol and 240 cardizem daily. Bilingual Medical Receptionist states that he is on cardizem via his PCP. His current PCP is unsure why the patient is on both but states that he continued the prior PCP's medicaiton regimen (prior PCP retired). Both chief operator synthesis and PCP state no hx of afib or flutter. Consulted our own chief operator synthesis who recommended continuing the patient's home regimen but decreasing metorpolol to 50 BID if necessary -will discharge with cardizem 240 and metoprolol 50 BID #hyponatremia Na 132 -> 136 Urine lytes- osm, lytes are all normal - most likely due to poor po intake, patient apparently does not drink much water - cont to monitor and encourage po intake #hx of htn -continue home dose of lisinopril, hctz, diltiazem. #Mental health -Continue citalopram, trazodone #constipation -cont senna/miralax #bph -cont flomax, finasteride #DVT PPx- ALPs for now. #Diet- heart healthy diet. #Full code Problem List: 1. Fall 2. COPD exacerbation 3. Hyponatremia Pain Ratin Pain Location: none Pain Goal: Pain 4 or less Pain Plan: pain pathway Tomorrow's Labs & Rationales: cbc bep Bharati Fregoso 08/02/17 1229: Attending MD Review Statement Attending Statement Attending MD Statement: examined this patient, discuss w/resident/PA/HOCKEY INSTRUCTOR, agreed w/resident/PA/HOCKEY INSTRUCTOR, discussed with family, reviewed EMR data (avail), discussed with nursing, discussed with case mgmt, reviewed images, amended to note Attending Assessment/Plan: A/P; 81 y/o with pmh sig for hypertension, hyperlipidemia, COPD not on home oxygen, history of right-sided kidney tumor?, 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 repeat CT head shows stable hyperdensity may represent tiny focal area of hemorrhage versus underlying pathology such as mineralized cavernous angioma. Patient was followed by neurosurgery and no intervention was recommended. Initially was monitored in ICU and now transferred to the medicine floor. Also having this chronic dry cough. Patient also has UTI. Cardiology consulted and recommend titration of bp meds. Patient appears to be hemodynamically stable. Continue ceftriaxone for UTI, patient growing Escherichia coli multidrug resistant. Obtain Ct abd/pelvis. Continue inhalers, antihistamine and antitussive. Continue prednisone taper and complete total of 5 days of azithromycin. Anticipate dc soon. DVT px; ALPS.
[2017-08-02 08:25] LABS: ABSOLUTE BASOPHIL COUNT 0 /CUMM (0.0-0.2); ABSOLUTE EOSINOPHIL COUNT 0.1 /CUMM (0.0-0.7); ABSOLUTE GRANULOCYTE CT 9.8 /CUMM (1.4-6.5); ABSOLUTE LYMPH COUNT 2.4 /CUMM (1.2-3.4); ABSOLUTE MONOCYTE COUNT 0.9 /CUMM (0.10-0.60); BASOPHIL % 0.4 % (0.0-2.0); EOSINOPHIL % 0.7 % (0-5); GRANULOCYTE % 73.8 % (42.2-75.2); HEMATOCRIT 38.9 % (42-52); MEAN CORPUSCULAR HGB 30.6 PG (27.0-31.0); MEAN CORPUSCULAR HGB CONC 33.2 G/DL (33.0-37.0); MEAN CORPUSCULAR VOLUME 92.2 FL (80.0-94.0); MEAN PLATELET VOLUME 6.8 FL (7.4-10.4); PLATELET COUNT 379 /CUMM (130-400); RBC DISTRIBUTION WIDTH 14.8 % (11.5-14.5); RED BLOOD CELL CT 4.22 /CUMM (4.70-6.10); WHITE BLOOD CELL COUNT 13.3 /CUMM (4.8-10.8)
[2017-08-02] MEDS ORDERED: TOPROL XL25 M1 PO (09:19)
--- NOTE | 2017-08-02 14:02 | Cons- Infect Disease ---
General Information and HPI Consulting Request Date of Consult: 08/02/17 Requested By: Bharati Fregoso MD Reason for Consult: Rule out urinary tract infection Source of Information: patient History of Present Illness: This is an 81-year-old man with a history of hypertension, hyperlipidemia, COPD, not on oxygen, a right kidney mass, with further details regarding this not available, chronic hyponatremia, nephrolithiasis, recurrent urinary tract infections, most recently 4 months prior to admission, and a left foot drop, resulting in numerous falls, with a nonproductive cough over the past week, with no shortness of breath, chest pain, fevers or chills, treated with an antibiotic and prednisone, admitted on July 29 after a fall at home resulting in head trauma. On admission he was afebrile, with an O2 sat of 96% on room air. Laboratory data revealed a white blood cell count of 21,000, BUN/creatinine 29 and 0.9, sodium 132, with normal liver enzymes, INR 1.26. Urinalysis greater than 75 RBCs/greater than 75 WBCs. Chest x-ray was negative. CT of the head revealed an 8 mm hyperdensity within the left frontal parafalcine region, which was unchanged on a follow-up CT of the head. He was begun on Azithromycin and Solumedrol and admitted to the ICU for neuro checks. He was switched to prednisone on the next days and moved to the floor. On August 01 he was given a dose of Ceftriaxone for a positive urine culture for Escherichia coli. At present he feels well with improvement in his cough and with no other respiratory symptoms. He has had no urinary symptoms and offers no other complaints at this time. Allergies/Medications Allergies: Coded Allergies: crab (DIARRHEA 07/29/17) Home Med List: Albuterol Sulfate (Ventolin Hfa) 90 MCG HFA.AER.AD 2 PUF INH Q4H PRN WHEEZE/ SOB (Reported) Aspirin (Ecotrin*) 81 MG TABLET.DR 1 TAB PO DAILY HEART/BLOOD (Reported) Atorvastatin Calcium 40 MG TABLET 1 TAB PO DAILY CHOLESTEROL (Reported) Benzonatate (Tessalon Perle) 100 MG CAPSULE 1 CAP PO TID PRN COUGH (Reported) Citalopram Hydrobromide (Citalopram HBr) 40 MG TABLET 1 TAB PO DAILY MENTAL HEALTH (Reported) Cyanocobalamin (Vitamin B-12) 1,000 MCG TABLET 1 TAB PO DAILY SUPPLEMENT ( Reported) Cyanocobalamin (Vitamin B-12) (Vitamin B-12) 100 MCG TABLET 1 TAB PO DAILY SUPPLEMENT (Reported) Diltiazem HCl (Cardizem Cd) 240 MG CAP.ER.24H 1 CAP PO DAILY HEART/BP ( Reported) Finasteride 5 MG TABLET 1 TAB PO DAILY PROSTATE (Reported) Hydrochlorothiazide 25 MG TABLET 1 TAB PO DAILY DIURETIC (Reported) Ipratropium [place] (Atrovent Hfa) 17 MCG/ACTUATION HFA.AER.AD 2 PUFF INH BID COPD (Reported) Lisinopril 20 MG TABLET 1 TAB PO DAILY BP (Reported) Loratadine 10 MG TABLET 1 TAB PO DAILY HAYFEVER Metoprolol Succ XL (Toprol XL) 25 MG TAB 1 TAB PO BID HTN Metoprolol Tartrate 25 MG TABLET 75 MG PO BID HEART/BP (Reported) Mometasone/Formoterol (Dulera 200 Mcg/5 Mcg Inhaler) 200 MCG-5 MCG/ACTUATION HFA.AER.AD 2 PUF INH BID COPD (Reported) Prednisone 10 MG TABLET STEROID TAPER (Reported) Tamsulosin HCl 0.4 MG CAP.ER.24H 1 CAP PO DAILY (Reported) Tiotropium [place] (Spiriva) (Unknown Strength) CAP.W.DEV (Unknown Dose) INH DAILY COPD (Reported) Trazodone HCl 50 MG TABLET 1 TAB PO AD MENTAL HEALTH/SLEEP (Reported) Vit C/E/Zn/Coppr/Lutein/Zeaxan (Preservision Areds 2 Softgel) 250-200-40 CAPSULE 1 SGL PO BID SUPPLEMENT (Reported) Past History Travel History Traveled to [place] past 21 day No Medical History Blood Transfusion Hx: No Neurological: left foot drop EENT: MACULAR DEGENERATION Cardiovascular: hypertension, hyperlipidemia Respiratory: COPD Hepatic: NONE 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 Home Smoking Status: Former Smoker ETOH Use: denies use Illicit Drug Use: denies illicit drug use Functional Ability ADLs Independent: dressing, eating, toileting, bathing. Ambulation: independent IADLs Unknown: shopping, housework, finances, food prep, telephone, transportation, medication admin. Review of Systems Review of Systems All Other Systems: Reviewed and Negative Exam & Diagnostic Data Last 24 Hrs of Vital Signs/I&O Vital Signs Date Time Temp Pulse Resp B/P B/P Pulse O2 O2 Flow FiO2 Mean Ox Delivery Rate 08/02 0927 130/70 08/02 0926 130/70 08/02 0619 97.4 63 20 130/70 94 Room Air 08/01 2222 97.6 81 20 110/58 96 Room Air 08/01 2211 97.6 81 20 110/58 08/01 1419 97.7 64 20 112/54 93 Room Air Intake & Output 08/02 1600 08/02 0800 08/02 0000 Intake Total 480 700 Output Total 200 450 500 Balance -200 30 200 Intake, Oral 480 700 Number 1 Bowel Movements Output, Urine 200 450 500 Patient 158 lb Weight Physical Exam Other Physical Findings: Afebrile on steroids. He is awake and alert in no acute distress. Skin reveals no rash. HEENT negative. Neck is supple with no adenopathy. Lungs decreased breath sounds bilaterally. Heart regular rhythm with no murmur. Abdomen is soft, nontender with positive bowel sounds. Back no CVA tenderness. Extremities no cyanosis, clubbing or edema. Neuro left foot drop. Last 24 Hours of Lab Results: Laboratory Tests 08/02 0740 Chemistry Sodium (137 - 145 mmol/L) 136 L Potassium (3.5 - 5.1 mmol/L) 4.1 Chloride (98 - 107 mmol/L) 100 Carbon Dioxide (22 - 30 mmol/L) 27 Anion Gap (5 - 16) 9 BUN (9 - 20 mg/dL) 28 H Creatinine (0.7 - 1.2 mg/dL) 0.7 Estimated GFR (>60 ml/min) > 60 BUN/Creatinine Ratio (7 - 25 %) 40.0 H Hematology CBC w Diff NO MAN DIFF REQ WBC (4.8 - 10.8 /CUMM) 13.3 H RBC (4.70 - 6.10 /CUMM) 4.22 L Hgb (14.0 - 18.0 G/DL) 12.9 L Hct (42 - 52 %) 38.9 L MCV (80.0 - 94.0 FL) 92.2 MCH (27.0 - 31.0 PG) 30.6 MCHC (33.0 - 37.0 G/DL) 33.2 RDW (11.5 - 14.5 %) 14.8 H Plt Count (130 - 400 /CUMM) 379 MPV (7.4 - 10.4 FL) 6.8 L Gran % (42.2 - 75.2 %) 73.8 Lymphocytes % (20.5 - 51.1 %) 18.2 L Monocytes % (1.7 - 9.3 %) 6.9 Eosinophils % (0 - 5 %) 0.7 Basophils % (0.0 - 2.0 %) 0.4 Absolute Granulocytes (1.4 - 6.5 /CUMM) 9.8 H Absolute Lymphocytes (1.2 - 3.4 /CUMM) 2.4 Absolute Monocytes (0.10 - 0.60 /CUMM) 0.9 H Absolute Eosinophils (0.0 - 0.7 /CUMM) 0.1 Absolute Basophils (0.0 - 0.2 /CUMM) 0 Last 24 Hours of [place] Results: Rapid flu swab July 29 negative Urine culture July 29 multiple colony types consistent with contamination Urine culture July 30 greater than 100,000 colonies of Escherichia coli resistant to Ampicillin, Cefazolin, Augmentin, Unasyn, Ciprofloxacin, Nitrofurantoin and Bactrim Diagnostic Data Recent Imaging Findings: Chest x-ray July [address] of the head July 29 revealed a stable 8 mm hyperdensity within the left frontal parafalcine region CT of the cervical spine July 29 reveals significant osteoarthrosis with moderate to severe degenerative spondylosis Assessment/Plan Assessment/Plan Impression: This is an 81-year-old man with a history of hypertension, hyperlipidemia, COPD, a right kidney mass, chronic hyponatremia, nephrolithiasis, recurrent urinary tract infections and a left foot drop, resulting in numerous falls, treated for the past week prior to admission with an antibiotic and prednisone for a nonproductive cough, admitted on July 29 after a fall at home, found to be afebrile with a leukocytosis, likely secondary to the prednisone, with a negative chest x-ray and stable respiratory status, found to have pyuria with a positive urine culture but with no urinary symptoms. His positive urine culture most likely represents asymptomatic bacteriuria and, in the absence of any urinary symptoms, it does not require treatment. Asymptomatic bacteriuria is often associated with asymptomatic pyuria, though his pyuria may be related to his kidney mass, with further details regarding this not available at this time. His cough appears to have improved and, as he has received 5 days of Azithromycin, this can be discontinued. His white blood cell count has decreased, but remains elevated, likely secondary to the steroids. Suggestion: 1. Would obtain further details regarding his right kidney mass 2. Continue to taper steroids 3. Discontinue Azithromycin and follow off antibiotics Consult Acknowledgment - Thank you for your consult request.
[2017-08-02 14:26] VITALS: BP 112/80
[2017-08-02] MEDS ORDERED: LOPRESSOR50 M1 PO (15:25)
[2017-08-02 16:28] VITALS: BP 116/70
--- NOTE | 2017-08-02 17:14 | CT SCAN REPORT ---
EXAMINATION: CT ABDOMEN AND PELVIS WITHOUT CONTRAST CLINICAL INFORMATION: Recurrent UTI. Rule out any mechanical obstruction. COMPARISON: None. TECHNIQUE: Multidetector volumetric imaging was performed from the superior aspect of the liver through the pubic symphysis. Sagittal and coronal reformatted images were obtained on the technologist workstation. DLP: 424.35 mGy-cm. FINDINGS: LUNG BASES: Scattered areas of subsegmental atelectasis are seen in the lower lobes and right middle lobe. LIVER, GALLBLADDER, AND BILIARY TREE: The liver is normal in size, shape, and attenuation. There is a 0.9 cm cyst in the left lobe of the liver (series 2, image 19). There may be an additional 1.6 x 0.9 cm low-attenuation mass in the left lobe (series 2, image 22, versus volume averaging with the adjacent stomach. No biliary ductal dilatation is present. The gallbladder is filled with multiple tiny gallstones and the gallbladder contents are hyperdense, perhaps representing vicarious excretion of contrast in the correct clinical setting versus hyperdense thickened bile/sludge. No gallbladder wall thickening or obvious pericholecystic inflammatory changes. PANCREAS: Mild atrophy of the pancreas is seen and fatty infiltration in the pancreatic head is noted. No definite mass appreciated on noncontrast study. No ductal dilatation seen. SPLEEN, ADRENAL GLANDS: Unremarkable on noncontrast imaging. KIDNEYS AND URETERS: A large extrarenal pelvis is seen on the right side with a 1.1 x 0.7 cm calcification seen in the right renal pelvis (series 2, image 41) with mean attenuation values of 408 Hounsfield units. No right-sided hydronephrosis is seen. There is a tiny locule of air seen within the corticomedullary junction of the right mid kidney (series 2, image 34), likely introduced via the bladder in a retrograde fashion. There is a large exophytic peripherally rim calcified and multilobulated mass seen arising from the posterior left mid renal cortex, measuring 10.0 x 5.9 x 6.1 cm. There are multiple internal hyperdense and partially calcified septations. This mass is indeterminate in etiology and may represent a solid calcified mass versus a multiseptated irregular cystic mass. The left kidney is slightly anteriorly displaced by this mass. The left kidney is otherwise unremarkable. No hydronephrosis or other renal calculi are seen. The ureters bilaterally are decompressed and no definite ureteral calculi are seen, although the distal ureters are obscured by extensive beam hardening artifact related to bilateral hip arthroplasties. BLADDER: Partially obscured by the hip arthroplasty artifact. A small left-sided bladder diverticulum is seen. Multiple small locules of air are seen within the bladder, likely related to recent catheterization. Visualized portions of the bladder otherwise unremarkable. PELVIC VISCERA: Obscured by the hip arthroplasty artifact. GASTROINTESTINAL TRACT: The small and large bowel are unremarkable. The appendix is unremarkable. ABDOMINAL WALL: No significant hernia is appreciated. LYMPH NODES, VASCULAR: Moderate three-vessel coronary artery calcifications are seen. The ascending aorta is aneurysmal, measuring 4.2 cm in maximal AP diameter just below the level of the pulmonary arterial bifurcation. Advanced atherosclerotic calcifications of the abdominal aorta and branch vessels are noted. No significant abdominal or pelvic adenopathy or free fluid collection is noted. OSSEOUS STRUCTURES: Bilateral total hip arthroplasty partially included, causing extensive beam hardening artifact in the pelvis, obscuring assessment. Prominent S-shaped thoracolumbar scoliosis and multilevel advanced degenerative disc disease seen throughout the thoracolumbar spine with near complete fusion at the T12-L1 level. Multiple posterior disc osteophyte complexes are seen projecting into the spinal canal. IMPRESSION: 1. A nonobstructing 1.1 cm calcification is seen in the right renal pelvis. No left renal calculi or ureteral/bladder calculi seen. 2. Large incompletely characterized peripherally rim calcified multilobulated and multiseptated mass is seen arising in an exophytic fashion from the posterior mid left renal cortex. This may represent a complex cystic mass or a partially calcified solid mass. Further assessment with MRI of the abdomen with and without contrast is recommended. 3. Small locules of air are seen within the bladder and within the right kidney, most likely due to extrinsic introduction by bladder catheterization. Clinical correlation requested. 4. Low-attenuation masses are seen in the left lobe of the liver, likely representing cysts. These can also be further characterized with the above suggested MRI scan of the abdomen with and without contrast. 5. Cholelithiasis and sludge versus vicarious excretion of contrast in the gallbladder. 6. Ascending aortic aneurysm partially included. Moderate three-vessel coronary artery calcifications. Severe atherosclerotic calcifications of the abdominal aorta and branch vessels.
--- NOTE | 2017-08-02 18:21 | PN- Cardiology ---
Subjective Subjective: The patient reports that he is comfortable. No new complaints. No chest pain. No shortness of breath. No palpitations. No diaphoresis. Objective Vital Signs and I&Os Vital Signs Date Time Temp Pulse Resp B/P B/P Pulse O2 O2 Flow FiO2 Mean Ox Delivery Rate 08/02 1628 98.3 66 18 116/70 08/02 1617 116/70 08/02 1433 95 Room Air 08/02 1426 98.3 66 18 112/80 96 Room Air 08/02 0927 130/70 08/02 0926 130/70 08/02 0619 97.4 63 20 130/70 94 Room Air 08/01 2222 97.6 81 20 110/58 96 Room Air 08/01 2211 97.6 81 20 110/58 Intake & Output 08/02 0800 08/02 0000 08/01 1600 08/01 0000 Intake Total 480 700 900 700 200 Output Total 200 450 500 400 150 Balance -200 30 200 900 300 50 Intake, IV 400 Intake, Oral 480 700 900 300 200 Number 1 Bowel Movements Output, Urine 200 450 500 400 150 Patient 138 lb 138 lb Weight Weight Bed scale Measurement Method Physical Exam: Gen: NAD HEENT: normal Lungs: clear to auscultation, normal resp. effort Heart: RRR, S1, S2, 1/6 systolic murmur Abdomen: Soft, nontender, no masses Extremities: No clubbing, cyanosis, or edema. Neuro: Alert and oriented x 3, cranial nerves intact Current Medications: Current Medications Sig/[place] Start time Last Medication Dose Route Stop Time Status Admin Acetaminophen 650 MG Q6P PRN 07/29 1899 AC PO Acetaminophen 1,000 MG Q6P PRN 07/29 1899 AC IV Albuterol Sulfate 3 ML Q4P PRN 07/30 1130 DC INH Aspirin Buffered 81 MG DAILY 08/02 1444 AC 08/02 PO 1616 Atorvastatin Calcium 40 MG 1700 07/30 1700 AC 08/02 PO 1617 Azithromycin 250 MG DAILY 07/29 1900 DC 08/02 PO 08/03 1001 0926 Budesonide/ 2 PUF BID 07/29 2200 AC 08/02 Formoterol Fumarate INH 0924 Citalopram 40 MG 1700 07/30 1700 AC 08/02 Hydrobromide PO 1616 Cyanocobalamin 1,000 MCG DAILY 07/30 1000 AC 08/02 PO 0926 Diltiazem HCl 240 MG DAILY 08/03 1000 AC PO Finasteride 5 MG 1700 07/30 1700 AC 08/02 PO 1616 Guaifenesin 10 ML Q6P PRN 07/29 1900 AC 08/01 PO 0113 Lisinopril 20 MG DAILY 07/30 1000 AC 08/02 PO 0927 Loratadine 10 MG DAILY 07/31 1445 AC 08/02 PO 0926 Melatonin 5 MG ONCE ONE 08/02 0045 DC PO 08/02 0046 Metoprolol Tartrate 75 MG BID 08/02 2199 AC PO Metoprolol Tartrate 25 MG BID 08/01 2200 DC 08/02 PO 0926 Polyethylene Glycol 17 GM DAILY NEEDED PRN 07/31 1500 AC 07/31 PO 1827 Prednisone 10 MG DAILY 08/02 1000 DC 08/02 PO 08/02 1001 0931 Prednisone 20 MG DAILY 08/01 1000 DC 08/01 PO 08/02 0959 0945 Senna 187 MG AT BEDTIME NEED.. 07/31 1500 AC 07/31 PO 1827 Tamsulosin HCl 0.4 MG 07/30 1700 AC 08/02 PO 1617 Tiotropium [place] 1 PUF DAILY 07/29 191 AC 08/02 INH 0925 Trazodone HCl 50 MG AT BEDTIME PRN 07/30 2199 AC PO Results Last 48 Hrs of Labs/Mics: Laboratory Tests 08/02/17 0740: Anion Gap 9, Estimated GFR > 60, BUN/Creatinine Ratio 40.0 H, CBC w Diff NO MAN DIFF REQ, RBC 4.22 L, MCV 92.2, MCH 30.6, MCHC 33.2, RDW 14.8 H, MPV 6.8 L, Gran % 73.8, Lymphocytes % 18.2 L, Monocytes % 6.9, Eosinophils % 0.7, Basophils % 0.4, Absolute Granulocytes 9.8 H, Absolute Lymphocytes 2.4, Absolute Monocytes 0.9 H, Absolute Eosinophils 0.1, Absolute Basophils 0 08/01/17 0810: Anion Gap 9, Estimated GFR > 60, BUN/Creatinine Ratio 47.5 H, TSH 0.620, Free T4 1.63, CBC w Diff NO MAN DIFF REQ, RBC 4.21 L, MCV 91.3, MCH 30.6, MCHC 33.6, RDW 14.6 H, MPV 7.1 L, Gran % 81.3 H, Lymphocytes % 13.3 L, Monocytes % 5.2, Eosinophils % 0.2, Basophils % 0, Absolute Granulocytes 12.5 H, Absolute Lymphocytes 2.0, Absolute Monocytes 0.8 H, Absolute Eosinophils 0, Absolute Basophils 0 Assessment/Plan Assessment/Plan Assessment: 1. Sinus bradycardia 2. Hypertension 2. COPD 4. Fall with abnormal head CT Recommendations: * Blood pressure and heart rate have been normal. Continue current cardiac medications. * Follow up with Dr. Richmond as an outpatient for echocardiogram and possible cardiac monitoring Continue telemetry? Not applicable
--- NOTE | 2017-08-03 15:09 | Discharge Summary ---
Hospital Course Course Consulting Request: Consulting Specialty: Infectious Disease Consulting Physician: Reason for Consult: recurrent urinary tract infections Allergies: Coded Allergies: crab (DIARRHEA 07/29/17) Discharge Instructions General Discharge Information Code Status: Full Code Medications at Discharge Discharge Medications: Stop taking the following medications: Prednisone (Prednisone) 10 MG TABLET ORAL As Directed Qty = 40 Metoprolol Tartrate (Metoprolol Tartrate) 25 MG TABLET ORAL TWICE DAILY Qty = 180 Tiotropium [place] (Spiriva) (Unknown Strength) CAP.W.DEV Inhale through mouth DAILY Cyanocobalamin (Vitamin B-12) (Vitamin B-12) 100 MCG TABLET ORAL DAILY Continue taking these medications: Aspirin (Ecotrin*) 81 MG TABLET. 1 Tablet ORAL DAILY Comments: LAST GIVEN: 08/02/16 1600 Atorvastatin Calcium (Atorvastatin Calcium) 40 MG TABLET 1 Tablet ORAL DAILY Qty = 90 Comments: Last Taken: 08/02/17 Time: 1600 Citalopram Hydrobromide (Citalopram HBr) 40 MG TABLET 1 Tablet ORAL DAILY Qty = 30 Comments: Last Taken: 08/02/17 Time: 1600 Cyanocobalamin (Vitamin B-12) 1,000 MCG TABLET 1 Tablet ORAL DAILY Comments: Last Taken: 08/02/17 Time: 9:30 AM Finasteride (Finasteride) 5 MG TABLET 1 Tablet ORAL DAILY Qty = 30 Comments: Last Taken: 08/02/17 Time: 1600 Hydrochlorothiazide (Hydrochlorothiazide) 25 MG TABLET 1 Tablet ORAL DAILY Qty = 90 Tamsulosin HCl (Tamsulosin HCl) 0.4 MG CAP.ER.24H 1 Capsule ORAL DAILY Qty = 90 Comments: Last Taken: 08/02/17 Time: 1600 Lisinopril (Lisinopril) 20 MG TABLET 1 Tablet ORAL DAILY Qty = 90 Comments: Last Taken: 08/02/17 Time: 9:00 AM Mometasone/Formoterol (Dulera 200 Mcg/5 Mcg Inhaler) 200 MCG-5 MCG/ACTUATION HFA.AER.AD 2 Puff Inhale through mouth TWICE DAILY Qty = 13 Diltiazem HCl (Cardizem Cd) 240 MG CAP.ER.24H 1 Capsule ORAL DAILY Qty = 90 Comments: NOT GIVEN SEVERAL DAYS; TO BE RESTARTED PER MD AT DISCHARGE. Ipratropium [place] (Atrovent Hfa) 17 MCG/ACTUATION HFA.AER.AD 2 PUFF Inhale through mouth TWICE DAILY Qty = 13 Comments: Last Taken: 08/02/17 Time: 9:00 AM Albuterol Sulfate (Ventolin Hfa) 90 MCG HFA.AER.AD 2 Puff Inhale through mouth Q4H as needed for WHEEZE/SOB Qty = 18 Comments: NOT GIVEN IN HOSPITAL Vit C/E/Zn/Coppr/Lutein/Zeaxan (Preservision Areds 2 Softgel) 250-200-40 CAPSULE 1 SGL ORAL TWICE DAILY Benzonatate (Tessalon Perle) 100 MG CAPSULE 1 Capsule ORAL THREE TIMES DAILY as needed for COUGH Comments: NOT GIVEN IN HOSPTIAL Trazodone HCl (Trazodone HCl) 50 MG TABLET 1 Tablet ORAL As Directed Comments: NOT GIVEN IN HOSPITAL Start taking the following new medications: Metoprolol Tartrate (Lopressor) 50 MG TABLET 1 Tablet ORAL TWICE DAILY Qty = 60 No Refills Comments: Last Taken: LAST GIVEN 25MG PO 08/02/17 9:20 AM Time:
== END 2017-08-02 18:16 | DRG 191 ==
LOC: ERH 14:09 → 2NA 17:11 → CRI 17:11 → ERHI 17:11 → ENRESERV 23:11 → CRI 07-30 01:15 → ENTRNSPT 07-30 14:04 → EDTRNSPT 07-30 14:22 → EDTRNSPTSTS 07-30 14:22 → 2NA 07-30 14:43 → CMPTRNSPT 07-30 15:01 → 2NA 07-31 09:36
PROVIDERS: Emergency Medicine; Internal Medicine Endocrinology, Diabetes & Metabolism; Student in an Organized Health Care Education/Training Program
PROC: 0HQ0XZZ Repair Scalp Skin, External Approach (ICD-10-PCS; principal; 2017-07-29)
DX: J44.1 Chronic obstructive pulmonary disease with (acute) exacerbation (principal); E87.1 Hypo-osmolality and hyponatremia; G62.9 Polyneuropathy, unspecified; I44.4 Left anterior fascicular block; S01.81XA Laceration without foreign body of other part of head, initial encounter; J40 Bronchitis, not specified as acute or chronic; E78.5 Hyperlipidemia, unspecified; N39.0 Urinary tract infection, site not specified; F32.9 Major depressive disorder, single episode, unspecified; W18.30XA Fall on same level, unspecified, initial encounter; Z87.891 Personal history of nicotine dependence; M21.372 Foot drop, left foot; I10 Essential (primary) hypertension; Z91.81 History of falling; N40.0 Benign prostatic hyperplasia without lower urinary tract symptoms; R00.1 Bradycardia, unspecified; B96.20 Unspecified Escherichia coli [E. coli] as the cause of diseases classified elsewhere; R01.1 Cardiac murmur, unspecified; G93.9 Disorder of brain, unspecified
CPT/HCPCS: 2NASP; 84133; 84300; ERO; 36415; 71046; 74176; 81001; 82436; 82570; 87086; 87804; 87804-59; 93005; 93010; 97110-GO; 97112-GO; 97116-GO; 97161-GP; 97530-GO; 97535-GO; J0131; J0456; J0696; J2930; J3490; J7040; J7512